=== PATIENT | female | born 1980 | race Caucasian/White ===

== ENCOUNTER → 2018-01-13 15:33 | Outpatient (CLI) | payer MEDICAID, SELFPAY ==
[2018-01-13 16:09] LABS: Basophils # 0.1 K/mm3 (0-0.2); Basophils % 1.4 % (0.1-2.0); Eosinophils # 0.2 K/mm3 (0.0-0.4); Eosinophils % 2.7 % (0.1-12.0); Hematocrit 40.5 % (37.0-47.0); Hemoglobin 14.4 g/dL (12.2-16.2); Lymphocytes # 2.1 K/mm3 (0.7-4.5); Lymphocytes % 31.9 K/mm3 (10-50); Mean Corpuscular HGB Conc 35.5 g/dL (31.8-35.4); Mean Corpuscular Hemoglobin 29.9 pg (27.0-31.2); Mean Corpuscular Volume 84.2 fl (81-99); Mean Platelet Volume 6.5 fl (7.4-10.4); Monocytes # 0.4 K/mm3 (0.1-1.0); Monocytes % 5.8 % (1.7-9.3); Neutrophils # 3.8 K/mm3 (1.8-7.8); Neutrophils % 58.2 % (37.0-80.0); Platelet Count 297 K/mm3 (142-424); Red Blood Count 4.81 M/mm3 (4.20-5.40); Red Cell Distribution Width 13.5 % (11.5-17.5); White Blood Count 6.5 K/mm3 (4.8-10.8)
[2018-01-13 18:20] LABS: Alanine Aminotransferase 33 U/L (12-78); Albumin Level 3.8 gm/dL (3.4-5.0); Albumin/Globulin Ratio 1.1 (1.1-1.8); Alkaline Phosphatase 89 U/L (46-116); Anion Gap 11.4 mEq/L (5-15); Aspartate Amino Transferase 17 U/L (15-37); Bilirubin,Total 0.2 mg/dL (0.2-1.0); Blood Urea Nitrogen 16 mg/dL (7-18); Calcium 9.4 mg/dL (8.5-10.1); Carbon Dioxide 29 mmol/L (21.0-32.0); Chloride 105 mmol/L (98-107); Chol/HDL Ratio 3.8 (1-3.5); Cholesterol 211 mg/dL (140-200); Creatinine,Serum 0.98 mg/dL (0.55-1.02); Estimated Glomerular Filt Rate 64 ml/min (>60); GFR (African American) 77 ML/MIN (>60); Globulin 3.4 gm/dl (1.3-3.2); Glucose 109 mg/dL (74-106); HDL Cholesterol 56 mg/dL (29-89); LDL Cholesterol 130 mg/dL (0-130); Potassium 4.4 mmoL/L (3.5-5.1); Sodium 141 mmol/L (136-145); T4 (Thyroxine) 14.8 ug/dl (4.7-13.3); Thyroid Stimulating Hormone 0.07 uIU/ml (0.358-3.740); Total Protein,Serum 7.2 gm/dL (6.4-8.2); Triglycerides 127 mg/dL (30-200); VLDL Cholesterol 25 mg/dL (0-40)
== END ==
PROVIDERS: PCP Emergency Medicine; Visit Provider Nurse Practitioner Family
DX: E03.9 Hypothyroidism, unspecified (principal)
CPT/HCPCS: 80053; 80061; 84436; 84443; 85025

== ENCOUNTER → 2018-09-21 18:08 | Outpatient (CLI) | payer MEDICAID, SELFPAY ==
--- NOTE | 2018-09-21 18:29 | XR_ITS ---
XR knee LT 4V HISTORY: ITS.REASON: knee pain ORDERING PHYSICIAN: Mackenzie Lacey APRN PATIENT AGE: 38 years COMPARISON: None FINDINGS: Mild osteoarthritic changes are present at the medial compartment and patellofemoral joint. No fracture or dislocation. No lytic or blastic change. IMPRESSION: Mild osteoarthritis
== END ==
PROVIDERS: PCP Nurse Practitioner Family; Visit Provider Nurse Practitioner Family
DX: M25.562 Pain in left knee (principal)
CPT/HCPCS: 73564

== ENCOUNTER → 2018-10-06 15:00 | Outpatient (CLI) | payer MEDICAID, SELFPAY | PROVIDERS: PCP Emergency Medicine; Visit Provider Orthopaedic Surgery | DX: M25.562 Pain in left knee (principal) ==

== ENCOUNTER 2020-04-16 22:53 | Emergency (ER) | payer MEDICAID, SELFPAY ==
[2020-04-16 22:55] VITALS: BP 165/78; PULSE 81; RESP 22; TEMP 36.8; O2SAT 95; BMI 31.1
--- NOTE | 2020-04-16 23:04 | XR_ITS ---
PROCEDURE: XR CHEST 2V CLINICAL HISTORY: SOA Shortness of air, smoker COMPARISON: CR CXR CHEST(2 VIEWS-NOT PORTABLE) from 09/06/2016 FINDINGS: The cardiomediastinal silhouette and pulmonary vascularity are within normal limits. There are atelectatic changes in both lung bases. No acute bony abnormalities. IMPRESSION: Bibasilar atelectasis Dictated by: Jack Spivey MD 04/17/2020 05:12 Jack Spivey MD in [place] 04/17/2020 05:12
[2020-04-16 23:30] LABS: Basophils # 0.1 K/mm3 (0-0.2); Basophils % 0.6 % (0.1-2.0); Eosinophils # 0.3 K/mm3 (0.0-0.4); Eosinophils % 2.3 % (0.1-12.0); Hematocrit 42.2 % (37.0-47.0); Hemoglobin 14.2 g/dL (12.2-16.2); Lymphocytes # 3.5 K/mm3 (0.7-4.5); Lymphocytes % 28.4 % (10-50); Mean Corpuscular HGB Conc 33.6 g/dL (31.8-35.4); Mean Corpuscular Hemoglobin 29.3 pg (27.0-31.2); Mean Platelet Volume 7.2 fl (7.4-10.4); Monocytes # 0.8 K/mm3 (0.1-1.0); Monocytes % 6.8 % (1.7-9.3); Neutrophils # 7.6 K/mm3 (1.8-7.8); Platelet Count 265 K/mm3 (142-424); Red Blood Count 4.85 M/mm3 (4.20-5.40); Red Cell Distribution Width 14.6 % (11.5-17.5); White Blood Count 12.3 K/mm3 (4.8-10.8)
[2020-04-16 23:37] LABS: Alanine Aminotransferase 24 U/L (12-78); Albumin Level 4.3 g/dl (3.5-5.0); Albumin/Globulin Ratio 1.4 (1.1-1.8); Alkaline Phosphatase 70 U/L (38-126); Anion Gap 8.5 mEq/L (5-15); Aspartate Amino Transferase 28 U/L (14-36); Bilirubin,Total 0.4 mg/dl (0.2-1.3); Blood Urea Nitrogen 17 mg/dl (7-17); Calcium 9.2 mg/dl (8.4-10.2); Carbon Dioxide 28 mmol/L (22.0-30.0); Chloride 99 mmol/L (98-107); Creatinine Clearance Estimated 106 mL/min (50-200); Estimated Glomerular Filt Rate 70 ml/min (>60); GFR (African American) 84 ML/MIN (>60); Glucose 105 mg/dl (74-100); Potassium 3.5 mmoL/L (3.5-5.1); Sodium 132 mmol/L (136-145); Total Protein,Serum 7.3 g/dl (6.3-8.2)
[2020-04-16 23:39] LABS: Microscopic, Urine URINE MICROSCOPIC (MICROSCOPIC)
[2020-04-16 23:42] LABS: C-Reactive Protein 5.7 mg/L (0-4)
[2020-04-16 23:43] LABS: Appearance,Urine CLEAR (Clear); Bilirubin,Urine Negative (Negative); Blood, Urine Negative (Negative); Color,Urine YELLOW (Yellow); Glucose,Urine (UA) Negative (Negative); Ketones,Urine Negative (Negative); Leukocyte Esterase,Urine Negative (Negative); Nitrate,Urine Negative (Negative); Protein,Urine Negative (Negative); Specific Gravity, Urine <= 1.005 (1.005-1.030); Urobilinogen,Urine 0.2 EU/dl (0.2)
--- NOTE | 2020-04-16 23:47 | HMH.EDSOB ---
ED Disposition Clinical Impression: Community acquired pneumonia Qualifiers: Laterality: right Lung location: middle lobe of lung Qualified Code(s): J18.9 - Pneumonia, unspecified organism Disposition: Home, Self-Care Condition on Discharge: Good Instructions: DI for Shortness of Breath Additional Instructions: fluids and see pcp for follow up Prescriptions: predniSONE [Prednisone 20mg Tab] 20 mg PO BID #10 tab Transmission Status: Pending to [facility] Benzonatate [Tessalon Perle 100mg Cap] 100 mg PO TID #30 cap Transmission Status: Pending to [facility] Azithromycin [Zithromax 250mg tab] 250 mg PO DIRECTED #6 tab Transmission Status: Pending to [facility] Referrals: Qi Villa [Primary Care Provider] - - Critical Care Critical Care Time: No Attestation: On 04/16/20, the high probability of a clinically significant, sudden or life threatening deterioration of the following system(s) required my full and direct attention, intervention and personal management. The time I documented below is in addition to time spent performing reported procedures but includes the following listed in this critical care notation. Medical Decision Making - Medical Records Medical records reviewed: Yes: I reviewed the patient's medical records. - [place] Inquiry Pt receiving controlled substance: No Vital Signs: 04/16/20 22:55 Temperature 98.2 F Temperature Source Oral Pulse Rate [Right] 81 Respiratory Rate 22 Blood Pressure [Right Arm] 165/78 H Blood Pressure Mean [Right Arm] 107 Blood Pressure Source [Right Arm] Automatic Cuff Blood Pressure Position [Right Arm] Supine 02 Sat by Pulse Oximetry 95 Oxygen Delivery Method Room Air - Lab Data Lab results reviewed: Yes: I reviewed the patient's lab results. Lab Results 04/16/20 23:20: WBC 12.3 H, RBC 4.85, Hgb 14.2, Hct 42.2, MCV 87.0, MCH 29.3, MCHC 33.6, RDW 14.6, Plt Count 265, MPV 7.2 L, Neut % (Auto) 62.0, Lymph % (Auto) 28.4, [place] % (Auto) 6.8, Eos % (Auto) 2.3, Baso % (Auto) 0.6, Neut # (Auto) 7.6, Lymph # (Auto) 3.5, [place] # (Auto) 0.8, Eos # (Auto) 0.3, Baso # (Auto) 0.1 04/16/20 23:20: Sodium 132 L, Potassium 3.5, Chloride 99, Carbon Dioxide 28, Anion Gap 8.5, BUN 17, Creatinine 0.90, Estimated Creat Clear 106, Estimated GFR 70, Est GFR ( Amer) 84, Glucose 105 H, Calcium 9.2, Total Bilirubin 0.4, AST 28, ALT 24, Alkaline Phosphatase 70, C-Reactive Protein 5.7 H, Total Protein 7.3, Albumin 4.3, Globulin 3.0, Albumin/Globulin Ratio 1.4, Procalcitonin 0.038 04/16/20 23:30: Urine Color Yellow, Urine Appearance Clear, Urine pH 6.0, Ur Specific [place] <= 1.005, Urine Protein Negative, Urine Glucose (UA) Negative, Urine Ketones Negative, Urine Blood Negative, Urine Nitrate Negative, Urine Bilirubin Negative, Urine Urobilinogen 0.2, Ur Leukocyte Esterase Negative, Urine WBC 3-5, Ur Squamous Epith Cells 20-50, Urine Bacteria 1+ Result diagrams: 04/16/20 23:20 04/16/20 23:20 Orders (Tests/Meds): ED MEDICATIONS Generic Name Dose Route Start Last Admin Trade Name Freq PRN Reason Stop Dose Admin Sodium Chloride 1,000 mls @ 999 mls/hr 04/16/20 23:30 04/16/20 23:27 Sod Chlor 0.9% 1000ml Bag IV 04/17/20 00:30 999 mls/hr .Q1H1M JERMAIN Administration Sodium Chloride 3 ml 04/16/20 23:04 Sodium Chloride 3% 15ml Neb IH 05/16/20 23:03 ONCE PRN INDUCE SPUTUM COLLECTION Discontinued Medications Generic Name Dose Route Start Last Admin Trade Name Freq PRN Reason Stop Dose Admin Albuterol/Ipratropium 3 ml 04/16/20 23:05 04/16/20 23:26 Albuterol/Ipratropium 3 Ml Neb IH 04/16/20 23:06 3 ml ONCE ONE Administration Methylprednisolone Sodium Succinate 125 mg 04/16/20 23:04 04/16/20 23:25 Methylprednisolone Sod Succ 125mg Vial IV 04/16/20 23:05 125 mg ONCE ONE Administration ORDERS Category Date Time Status XR chest 2V Stat Exams 04/16/20 23:04 Taken Complete Blood Count Auto Di
[2020-04-16 23:54] LABS: Barbiturates Screen,Urine Negative ng/ml (<200)
[2020-04-16 23:55] LABS: Benzodiazepines Screen,Urine Negative ng/ml (<200)
[2020-04-16 23:55] LABS: Procalcitonin 0.038 ng/mL (0.0-2.0)
[2020-04-16 23:56] LABS: Cannabinoid Screen,Urine Negative ng/ml (<50)
[2020-04-16 23:57] LABS: Cocaine Screen,Urine Negative ng/ml (<300)
[2020-04-16 23:58] LABS: Bacteria,Urine 1+ /lpf; Methadone Screen,Urine Negative ng/ml (<300); Opiate Screen,Urine Negative ng/ml (<300); Squamous Epithelial Cell,Urine 20-50 #/hpf (0-5)
[2020-04-16 23:59] LABS: Phencyclidine Screen,Urine Negative ng/ml (<25)
[2020-04-17 00:01] LABS: Amphetamine/Metha Screen,Urine Negative ng/ml (<1000)
[2020-04-17 00:43] LABS: Coronavirus 19 IgG Antibody Negative (Negative); Coronavirus 19 IgM Antibody Negative (Negative)
[2020-04-17 00:49] VITALS: BP 145/71; PULSE 75; RESP 18; TEMP 36.7; O2SAT 96
[2020-04-17 00:59] LABS: Erythrocyte Sedimentation Rate 15 mm/hr (0-20)
== END 2020-04-17 00:51 | disposition home or self-care (01) ==
PROVIDERS: Emergency Provider Emergency Medicine; PCP Family Medicine
DX: J18.9 Pneumonia, unspecified organism (principal); Z01.84 Encounter for antibody response examination; F17.210 Nicotine dependence, cigarettes, uncomplicated
CPT/HCPCS: 71046; 80053; 80305; 81001; 84145; 85025; 85651; 86140; 86328; 87070; 87077; 87186; 87205; 96365; 96375; 99283

== ENCOUNTER 2020-05-14 14:53 | Emergency (ER) | payer MEDICAID, SELFPAY ==
[2020-05-14 14:54] VITALS: BP 138/80; PULSE 107; RESP 20; TEMP 37.3; O2SAT 98; BMI 31.1
--- NOTE | 2020-05-14 14:59 | XR_ITS ---
PROCEDURE: XR CHEST PORTABLE CLINICAL HISTORY: soashortness of air, pneumonia follow-up COMPARISON: CR CXR CHEST(2 VIEWS-NOT PORTABLE) from 09/06/2016 CR XR CHEST 2V from 04/16/2020 FINDINGS: The cardiomediastinal silhouette and pulmonary vascularity are within normal limits. There remains patchy density in the right lung base consistent with residual atelectasis and/or infiltrate. The remaining lungs are clear. No acute bony abnormalities. IMPRESSION: Persistent atelectasis and/or infiltrate in lung base Dictated by: Jack Spivey MD 05/14/2020 15:33 Jack Spivey MD in [place] 05/14/2020 15:33
--- NOTE | 2020-05-14 15:17 | HMH.EDGENADL ---
ED Disposition Clinical Impression: Community acquired pneumonia Disposition: Home, Self-Care Condition on Discharge: Good Additional Instructions: Return for worsening shortness of breath fever or any other concerns within the next 8 hours otherwise follow-up with your primary care physician within the next few days Prescriptions: Cefdinir [Omnicef 300mg Capsule] 300 mg PO BID 10 Days #20 cap Transmission Status: Pending to [facility] Referrals: Qi Villa [Primary Care Provider] - - Critical Care Critical Care Time: No Attestation: On , the high probability of a clinically significant, sudden or life threatening deterioration of the following system(s) required my full and direct attention, intervention and personal management. The time I documented below is in addition to time spent performing reported procedures but includes the following listed in this critical care notation. Medical Decision Making - Medical Records Medical records reviewed: Yes: I reviewed the patient's medical records. - [place] Inquiry Pt receiving controlled substance: No Vital Signs: 05/14/20 14:54 Temperature 99.2 F Temperature Source Oral Pulse Rate [Radial] 107 H Respiratory Rate 20 Blood Pressure [Right Arm] 138/80 Blood Pressure Mean [Right Arm] 99 Blood Pressure Position [Right Arm] Sitting 02 Sat by Pulse Oximetry 98 Oxygen Delivery Method Room Air - Lab Data Lab Results 05/14/20 15:45: WBC 8.4, RBC 5.14, Hgb 14.5, Hct 45.0, MCV 87.6, MCH 28.3, MCHC 32.3, RDW 14.1, Plt Count 306, MPV 6.9 L, Neut % (Auto) 67.3, Lymph % (Auto) 21.2, [place] % (Auto) 7.3, Eos % (Auto) 2.8, Baso % (Auto) 1.3, Neut # (Auto) 5.7, Lymph # (Auto) 1.8, [place] # (Auto) 0.6, Eos # (Auto) 0.2, Baso # (Auto) 0.1 05/14/20 15:45: Sodium 135 L, Potassium 4.2, Chloride 97 L, Carbon Dioxide 31 H, Anion Gap 11.2, BUN 16, Creatinine 1.00, Estimated Creat Clear 95, Estimated GFR 62, Est GFR ( Amer) 75, Glucose 120 H, Calcium 10.1, Total Bilirubin 0.4, AST 31, ALT 28, Alkaline Phosphatase 83, Total Protein 8.1, Albumin 4.8, Globulin 3.3 H, Albumin/Globulin Ratio 1.5 05/14/20 15:45: Serum HCG, Qual Negative Result diagrams: 05/14/20 15:45 05/14/20 15:45 Medical Decision Narrative: 39-year-old female presents with symptoms of atypical pneumonia. Chest x-ray and laboratory evaluation have been obtained. She is in no acute distress and nontoxic-appearing able to speak in full sentences vital signs otherwise are stable. Chest x-ray shows persistent pneumonia labs otherwise nonactionable, plan to discharge with antibiotics and given strict return precautions General Adult HPI - General Chief complaint: Shortness of Breath/Dyspnea Stated complaint: congested,cough Time Seen by Provider: 05/14/20 15:10 Mode of Arrival: Ambulatory Limitations: No Limitations Description of Symptoms (Recalled from ER Triage Doc. by RN): TO ED PER [facility] WITH C/O COUGH, SOB PT STATES DX WITH PNEUMONIA 04/15 FINISHED COURSE OF ANTIBIOTICS STATES SHE WAS IMPROVING WITH MEDS, BUT BECAME PROGRESSIVELY WORSE AFTER. SEEN BY PCP 04/28 WITH NO NEW ORDERS. - History of Present Illness HPI narrative: 39-year-old female presents with cough and shortness of breath. She says the symptoms are same as they were in April, and that the antibiotics did help her get better. She says she has no fever no chills no loss of taste and smell. No nausea vomiting fever or chest pain. Onset (ago): day(s) (1) Severity: mild Consistency: intermittent - Related Data Home Medications Medication Instructions Recorded Confirmed Buprenorphine HCl/Naloxone HCl 1 each SL DAILY 04/16/20 04/16/20 [Suboxone 8 mg-2 mg Sl Film] Levothyroxine Sodium [Synthroid 175 mcg PO DAILY 04/16/20 04/16/20 175mcg (0.175mg) tablet] Montelukast Sodium [Singulair 10mg 10 mg PO PM 04/16/20 04/16/20 tablet] buPROPion HCL [Wellbutrin SR] 150 mg PO BID 04/16/20 04/16/20 hydroCHLOROth
[2020-05-14 16:05] LABS: Basophils # 0.1 K/mm3 (0-0.2); Basophils % 1.3 % (0.1-2.0); Eosinophils # 0.2 K/mm3 (0.0-0.4); Eosinophils % 2.8 % (0.1-12.0); Hemoglobin 14.5 g/dL (12.2-16.2); Lymphocytes # 1.8 K/mm3 (0.7-4.5); Lymphocytes % 21.2 % (10-50); Mean Corpuscular HGB Conc 32.3 g/dL (31.8-35.4); Mean Corpuscular Hemoglobin 28.3 pg (27.0-31.2); Mean Corpuscular Volume 87.6 fl (81-99); Mean Platelet Volume 6.9 fl (7.4-10.4); Monocytes # 0.6 K/mm3 (0.1-1.0); Monocytes % 7.3 % (1.7-9.3); Neutrophils # 5.7 K/mm3 (1.8-7.8); Neutrophils % 67.3 % (37.0-80.0); Platelet Count 306 K/mm3 (142-424); Red Blood Count 5.14 M/mm3 (4.20-5.40); Red Cell Distribution Width 14.1 % (11.5-17.5); White Blood Count 8.4 K/mm3 (4.8-10.8)
[2020-05-14 16:08] LABS: Chloride 97 mmol/L (98-107); Potassium 4.2 mmoL/L (3.5-5.1); Sodium 135 mmol/L (136-145)
[2020-05-14 16:11] LABS: Alanine Aminotransferase 28 U/L (12-78); Albumin Level 4.8 g/dl (3.5-5.0); Albumin/Globulin Ratio 1.5 (1.1-1.8); Alkaline Phosphatase 83 U/L (38-126); Anion Gap 11.2 mEq/L (5-15); Aspartate Amino Transferase 31 U/L (14-36); Bilirubin,Total 0.4 mg/dl (0.2-1.3); Blood Urea Nitrogen 16 mg/dl (7-17); Carbon Dioxide 31 mmol/L (22.0-30.0); Creatinine Clearance Estimated 95 mL/min (50-200); Estimated Glomerular Filt Rate 62 ml/min (>60); GFR (African American) 75 ML/MIN (>60); Globulin 3.3 g/dL (1.3-3.2); Total Protein,Serum 8.1 g/dl (6.3-8.2)
[2020-05-14 16:12] LABS: Calcium 10.1 mg/dl (8.4-10.2); Glucose 120 mg/dl (74-100); HCG Qualitative, Serum Negative (Negative)
[2020-05-14 16:40] VITALS: BP 115/62; PULSE 88; RESP 18; TEMP 37.2; O2SAT 98
== END 2020-05-14 16:41 | disposition home or self-care (01) ==
PROVIDERS: Emergency Provider Emergency Medicine; PCP Family Medicine
DX: J18.9 Pneumonia, unspecified organism (principal); F17.210 Nicotine dependence, cigarettes, uncomplicated
CPT/HCPCS: 71045; 80053; 84703; 85025; 99282

== ENCOUNTER 2020-05-22 12:33 | Emergency (ER) | payer MEDICAID, SELFPAY ==
[2020-05-22 12:35] VITALS: BP 131/73; PULSE 76; RESP 22; TEMP 36.6; O2SAT 96; BMI 31.1
[2020-05-22 12:53] VITALS: BMI 31.1
--- NOTE | 2020-05-22 12:54 | XR_ITS ---
PROCEDURE: XR CHEST 2V CLINICAL HISTORY: COUGH COMPARISON: CR CXR CHEST(2 VIEWS-NOT PORTABLE) from 09/06/2016 CR XR CHEST 2V from 04/16/2020 CR XR CHEST PORTABLE from 05/14/2020 FINDINGS: The cardiomediastinal silhouette and pulmonary vascularity are within normal limits. The lungs are clear without infiltrates, suspicious nodules, or pleural effusions. No acute bony abnormalities. IMPRESSION: No acute findings. Dictated by: Jack Spivey MD 05/22/2020 20:33 Jack Spivey MD in [place] 05/22/2020 20:33
--- NOTE | 2020-05-22 13:02 | HMH.EDUTC ---
[facility] [place] <Tahir Morin - Last Filed: 05/22/20 13:02> Condition on Discharge: Fair Time of Disposition: 15:20 <Joe Hobson - Last Filed: 05/22/20 15:20> Clinical Impression: Anxiety about health Disposition: Home, Self-Care Additional Instructions: We have reviewed your recent labs and chest x-ray and show and they show no acute findings we have done an EKG today and it shows normal sinus rhythm rhythm vital signs today are also within normal limits continue take your current antibiotics and follow-up as needed Referrals: Qi Villa [Primary Care Provider] - Medical Decision Making - Medical Records Medical records reviewed: No: I reviewed the patient's medical records. - Dillon Inquiry Pt receiving controlled substance: No <Tahir Morin - Last Filed: 05/22/20 13:02> - Medical Records MR Comment: 39-year-old female here with complaint that she was not feeling well she recently had pneumonia and was treated with Keflex states she got up in the middle of the night yesterday and had checked her blood pressure and it was seen to be elevated heart rate was also elevated she called her sister who is apparently an RN and this got her concerned and came to be evaluated she first came to the urgent care center and they sent her here for further evaluation. I reviewed patient's findings as she has had a CBC and CMP on 05/14/2020 and these are found to be within normal limits; she had a chest x-ray also at the same time and it says atelectasis or infiltrates in lung bases was treated with an antibiotic; today at this time her vital signs are stable blood pressure is 111/63; pulse 72; respirations 18; oxygen saturation 96% on room air; temperature is 96.8; EKG shows normal sinus rhythm with a rate of 67; given reassurance to the patient I do not think we need to do more work-up; Advised continue with her current antibiotic Keflex and follow-up as needed and advised her also that an occasional rise in blood pressure without symptoms such as chest pain shortness of breath or focal neurological signs of no concern - [place] Inquiry Pt receiving controlled substance: No - Lab Data Lab results reviewed: Yes: I reviewed the patient's lab results. <Joe Hobson - Last Filed: 05/22/20 15:20> Vital Signs: 01/21/21 12:35 05/22/20 13:04 05/22/20 13:51 Temperature 97.8 F 98.8 F Temperature Source Oral Oral Pulse Rate [Right Brachial] 76 88 72 Respiratory Rate 22 19 Blood Pressure [Right Arm] 131/73 127/87 111/63 Blood Pressure Mean [Right Arm] 92 100 79 Blood Pressure Source [Right Arm] Automatic Cuff Automatic Cuff Automatic Cuff Blood Pressure Position [Right Arm] Sitting Sitting Sitting 02 Sat by Pulse Oximetry 96 97 96 Oxygen Delivery Method Room Air Room Air Room Air Orders (Tests/Meds): ORDERS Category Date Time Status Chest XR 2 view (NOT portable) [XR chest 2V] Stat Exams 05/22/20 12:54 Taken [facility] [place] - History of Present Illness Provider Complaint: She is here today with complaints of having pneumonia and not getting better. She was first diagnosed with pneumonia back in April. She was treated out patient and she seemed to get better. But her symptoms returned around 8 days ago. She then came in and was treated in the er here for pneumonia. She was sent home on antibiotics. She states that she felt better until yesterday. Yesteday she started feeling bad, having a worsening cough and having an elevated heart rate. Her sister is an RN. They checked her HR last night and it as read as 210 bpm. She waited until today to come back in. At this time she c/o feeling like her pneumonia is back. She c/o shortness of breath, cough, and chilling. She denies any covid exposure. She was negative at her last visit and she states that she has stayed home and not been around anyone since her last covid check. <Tahir Morin - Last Filed: 05/22/20 13:02> - General Mode of Arrival: Ambulatory Source of
[2020-05-22 13:04] VITALS: BP 127/87; PULSE 88; RESP 19; TEMP 37.1; O2SAT 97; BMI 32.9
--- NOTE | 2020-05-22 13:07 | PC.NURSE ---
PATIENT SENT TO ER PER OLVIN TUTTLE APRN FOR FURTHER EVALUATION. REPORT GIVEN TO Ya BOO RN
[2020-05-22 13:51] VITALS: BP 111/63; PULSE 72; O2SAT 96
--- NOTE | 2020-05-22 15:11 | ECG_ITS ---
APPROVED REPORT Exam: Resting ECG HR:67 bpm ECG Measurements Heart Rate 67 AXES IA 154 P 33 QRSd 74 QRS 64 QT 414 T 29 QTc 437 Conclusion Normal sinus rhythm Normal ECG Electronically signed by : Obdulio Spivey, 05/23/2020 18:07:28
[2020-05-22 15:33] VITALS: BP 109/71; PULSE 75; RESP 20; TEMP 36.6; O2SAT 96
== END 2020-05-22 15:34 | disposition home or self-care (01) ==
LOC: UTC 12:38 → ER 13:07
PROVIDERS: Emergency Provider Nurse Practitioner Family; PCP Family Medicine
DX: F41.8 Other specified anxiety disorders (principal); E03.9 Hypothyroidism, unspecified; R05 Cough; R06.02 Shortness of breath; F17.210 Nicotine dependence, cigarettes, uncomplicated; Z79.899 Other long term (current) drug therapy
CPT/HCPCS: 71046; 93005; 99282

== ENCOUNTER 2020-09-06 10:30 | Emergency (ER) | payer MEDICAID, SELFPAY ==
[2020-09-06 11:40] VITALS: BP 165/126; PULSE 85; RESP 19; TEMP 36.7; O2SAT 97; BMI 32.8
[2020-09-06 11:45] VITALS: BP 165/126; PULSE 85; RESP 19; TEMP 36.7; O2SAT 97
--- NOTE | 2020-09-06 11:45 | HMH.EDUTC ---
[facility] [place] Disposition Clinical Impression: Bronchitis Disposition: Home, Self-Care Condition on Discharge: Good Instructions: DI for Acute Bronchitis Additional Instructions: Drink plenty of fluids. Take tylenol for pain or fever. Return if you begin to have difficulty breathing. Follow up with your regular doctor. GO TO THE ER FOR ANY WORSENING SYMPTOMS Prescriptions: Benzonatate [Tessalon Perle 100mg Cap] 100 mg PO TIDP PRN #30 cap PRN Reason: Cough Transmission Status: Received by [facility] Azithromycin [Z-Kuldeep 250mg Tab*] 250 mg PO UD DOSE PK #6 tab Transmission Status: Received by [facility] Referrals: Qi Villa [Primary Care Provider] - Time of Disposition: 11:50 Medical Decision Making - Medical Records Medical records reviewed: No: I reviewed the patient's medical records. - Dillon Inquiry Pt receiving controlled substance: No Vital Signs: 09/06/20 11:40 09/06/20 11:45 Temperature 98.1 F 98.1 F Temperature Source Oral Pulse Rate 85 Pulse Rate [Left] 85 Respiratory Rate 19 19 Blood Pressure 165/126 H Blood Pressure [Right Arm] 165/126 H Blood Pressure Mean [Right Arm] 139 Blood Pressure Source [Right Arm] Automatic Cuff Blood Pressure Position [Right Arm] Sitting 02 Sat by Pulse Oximetry 97 Oxygen Delivery Method Room Air [facility] [place] HPI - General Stated complaint: cough congestion Time Seen by Provider: 09/06/20 11:45 Mode of Arrival: Ambulatory Source of Information: Patient Limitations: No Limitations Description of Symptoms (Recalled from Triage Doc. by RN): Cough, congestion, x 3 days since second moderna shot HEENT Symptoms (Recalled from RN notes): No Resp Symptoms (Recalled from RN notes): Yes Skin Symptoms (Recalled from RN notes): No MS Symptoms (Recalled from RN notes): No Functional Status (Recalled from RN notes): wnl - History of Present Illness Provider Complaint: She states that she has had sinus and chest congestion for the past 3 days. She gets bronchitis this time of year usually. - Related Data Home Medications Medication Instructions Recorded Confirmed Buprenorphine HCl/Naloxone HCl 1 each SL DAILY 04/16/20 04/16/20 [Suboxone 8 mg-2 mg Sl Film] Levothyroxine Sodium [Synthroid 175 mcg PO DAILY 04/16/20 04/16/20 175mcg (0.175mg) tablet] Montelukast Sodium [Singulair 10mg 10 mg PO PM 04/16/20 04/16/20 tablet] buPROPion HCL [Wellbutrin SR] 150 mg PO BID 04/16/20 04/16/20 hydroCHLOROthiazide 50 mg PO DAILY 04/16/20 04/16/20 [Hydrochlorothiazide 50mg Tab] Previous Rx's Medication Instructions Recorded albuterol sulfate 90 mcg/actuation 2 puff INHALATION Q6H PRN 30 Days 08/30/18 aerosol inhaler #6.7 g Azithromycin [Zithromax 250mg 250 mg PO DIRECTED #6 tab 04/17/20 tab] Benzonatate [Tessalon Perle 100mg 100 mg PO TID #30 cap 04/17/20 Cap] predniSONE [Prednisone 20mg 20 mg PO BID #10 tab 04/17/20 Tab] ciprofloxacin HCl 500 mg tablet 500 mg PO BID 5 Days #10 tab 04/22/20 Cefdinir [Omnicef 300mg Capsule] 300 mg PO BID 10 Days #20 cap 05/14/20 Azithromycin [Z-Kuldeep 250mg Tab*] 250 mg PO UD DOSE PK #6 tab 09/06/20 Benzonatate [Tessalon Perle 100mg 100 mg PO TIDP PRN #30 cap 09/06/20 Cap] Allergies Allergy/AdvReac Type Severity Reaction Status Date / Time No Known Allergies Allergy Verified 09/06/20 11:03 - Worker's Comp Is this a Worker's Comp case?: No [facility] History - Hepatitis A Screen Drug use history?: No High risk sexual behaviors?: No History of sexually transmitted infection?: No Currently employed?: No Childcare worker?: No Do you have indoor plumbing?: Yes Do you have electricity?: Yes Attestation statement:: This patient has been screened for Hepatitis A risk factors. I have reviewed the patient's past medical history: Yes Medical History: Denies:: Diabetes Mellitus Type 1, Diabetes Mellitus Type 2 Laterality Cases: Left: Arthroscopy Knee Other
== END 2020-09-06 11:56 | disposition home or self-care (01) ==
PROVIDERS: Emergency Provider Nurse Practitioner Family; PCP Family Medicine
DX: J20.9 Acute bronchitis, unspecified (principal); F17.210 Nicotine dependence, cigarettes, uncomplicated; Z79.899 Other long term (current) drug therapy
CPT/HCPCS: 99202; G0463

== ENCOUNTER → 2021-03-09 21:58 | Outpatient (CLI) | payer MEDICAID, SELFPAY | PROVIDERS: Visit Provider Nurse Practitioner Family | DX: Z20.822 Contact with and (suspected) exposure to COVID-19 (principal); J02.9 Acute pharyngitis, unspecified | CPT/HCPCS: C9803; U0003; U0005 ==

== ENCOUNTER 2021-05-28 12:48 | Emergency (ER) | payer MEDICAID, SELFPAY ==
[2021-05-28 12:50] VITALS: BP 122/76; PULSE 76; RESP 18; TEMP 36.8; O2SAT 98; BMI 33.5
--- NOTE | 2021-05-28 13:00 | XR_ITS ---
FINAL REPORT CLINICAL HISTORY: chest pain FINDINGS: SINGLE VIEW CHEST The heart is normal in size. The mediastinum is unremarkable. There is a calcified granuloma in the periphery of the right lung. The lungs are otherwise clear. There is no pneumothorax. IMPRESSION: No acute cardiopulmonary process. Reviewed, Interpreted and Dictated by Bismark Pineda MD Transcribed by Sarita Ahmadi Authenticated by Bismark Pineda MD on 05/28/2021 02:22:19 PM [facility]
--- NOTE | 2021-05-28 13:08 | ECG_ITS ---
APPROVED REPORT Exam: Resting ECG HR:73 bpm ECG Measurements Heart Rate 73 AXES [place] 155 P 18 QRSd 79 QRS 42 QT 380 T 12 QTc 406 Conclusion SINUS RHYTHM NORMAL ECG UNCONFIRMED REPORT Electronically signed by : Obdulio Spivey MD 06/01/2021 17:32:30
--- NOTE | 2021-05-28 13:14 | HMH.EDGENADL ---
ED Disposition Clinical Impression: Chest pain Qualifiers: Chest pain type: unspecified Qualified Code(s): R07.9 - Chest pain, unspecified Disposition: Home, Self-Care Condition on Discharge: Fair Instructions: DI for Chest Pain Additional Instructions: You have been evaluated for chest pain. No clear cause identified. Please take anti-inflammatories like Tylenol or ibuprofen if you have mild chest pain. Continue taking Eliquis as prescribed. Return to the emergency department at once for any new or worsening symptoms, sharp pain, difficulty breathing, other concerns. Referrals: Qi Villa [Primary Care Provider] - Time of Disposition: 14:51 - Critical Care Critical Care Time: No Attestation: On 05/28/21, the high probability of a clinically significant, sudden or life threatening deterioration of the following system(s) required my full and direct attention, intervention and personal management. The time I documented below is in addition to time spent performing reported procedures but includes the following listed in this critical care notation. Medical Decision Making - Medical Records Medical records reviewed: Yes: I reviewed the patient's medical records. - Dillon Inquiry Pt receiving controlled substance: No Vital Signs: 05/28/21 12:50 Temperature 98.2 F Temperature Source Oral Pulse Rate [Left Radial] 76 Respiratory Rate 18 Blood Pressure [Right Arm] 122/76 Blood Pressure Mean [Right Arm] 91 Blood Pressure Source [Right Arm] Automatic Cuff Blood Pressure Position [Right Arm] Sitting 02 Sat by Pulse Oximetry 98 Oxygen Delivery Method Room Air - Lab Data Lab Results 05/28/21 13:27: WBC 7.1, RBC 4.52, Hgb 12.9, Hct 39.3, MCV 87.0, MCH 28.6, MCHC 32.9, RDW 14.0, Plt Count 319, MPV 7.3 L, Neut % (Auto) 62.2, Lymph % (Auto) 28.0, [place] % (Auto) 5.9, Eos % (Auto) 2.3, Baso % (Auto) 1.6, Neut # (Auto) 4.4, Lymph # (Auto) 2.0, [place] # (Auto) 0.4, Eos # (Auto) 0.2, Baso # (Auto) 0.1 05/28/21 13:27: D-Dimer 0.43 05/28/21 13:27: Sodium 136, Potassium 3.8, Chloride 98, Carbon Dioxide 28, Anion Gap 13.8, BUN 16, Creatinine 1.00, Estimated Creat Clear 101, Estimated GFR 61, Est GFR ( Amer) 74, Glucose 116 H, Calcium 9.4, Total Bilirubin 0.3, AST 32, ALT 26, Alkaline Phosphatase 63, Troponin I < 0.01, Total Protein 7.3, Albumin 4.5, Globulin 2.8, Albumin/Globulin Ratio 1.6 Result diagrams: 05/28/21 13:27 05/28/21 13:27 Orders (Tests/Meds): ORDERS Category Date Time Status Troponin I Q3H Lab 05/28/21 16:15 Ordered Troponin I Q3H Lab 05/28/21 19:15 Ordered EKG Request [ECG Request by /Ruma] Stat Y 05/28/21 13:01 Ordered - PABLO Score for Non-Stemi Age of Patient: 40-49 years old Heart Rate: 70-89 bpm Systolic Blood Pressure: 120-139 mmhg Serum Creatinine: 0.40-0.79 mg/dl CHF [place] Class: I-No CHF Other Risk Factors: None Non-Stemi Risk Score: 72 Medical Decision Narrative: In summary this is a 40-year-old female with history of thyroid cancer and recent DVT presenting to the emergency department with left-sided chest pain. Patient clinically stable on arrival. Vital signs within normal limits. No tachycardia. No respiratory distress or hypoxia. Concern for musculoskeletal pain, chest wall pain. Cannot exclude pulmonary embolism or ACS. Will obtain CBC, CMP, chest x-ray, EKG, troponin profile, D-dimer. EKG shows sinus rhythm. No evidence of ischemia or arrhythmia. Initial laboratory results reassuring. No leukocytosis. Initial troponin is undetectable. D-dimer within normal limits. Doubt new or acute pulmonary embolism. Patient is anticoagulated on Eliquis. No tachycardia or hypoxia. On reassessment, patient says that her chest pain is entirely resolved. She has no new or concerning features like fatigue or shortness of breath. She ambulated to the bathroom without difficulty. Counseled her on atypical nature of chest pain. Recommended close PCP follow-up. Given
[2021-05-28 13:30] VITALS: PULSE 75; O2SAT 95
--- NOTE | 2021-05-28 13:31 | PC.NURSE ---
Radiology at bedside
[2021-05-28 13:48] LABS: Alanine Aminotransferase 26 U/L (12-78); Albumin Level 4.5 g/dl (3.5-5.0); Albumin/Globulin Ratio 1.6 (1.1-1.8); Alkaline Phosphatase 63 U/L (38-126); Anion Gap 13.8 mEq/L (5-15); Aspartate Amino Transferase 32 U/L (14-36); Bilirubin,Total 0.3 mg/dl (0.2-1.3); Blood Urea Nitrogen 16 mg/dl (7-17); Calcium 9.4 mg/dl (8.4-10.2); Carbon Dioxide 28 mmol/L (22.0-30.0); Chloride 98 mmol/L (98-107); Creatinine Clearance Estimated 101 mL/min (50-200); Estimated Glomerular Filt Rate 61 ml/min (>60); GFR (African American) 74 ML/MIN (>60); Globulin 2.8 g/dL (1.3-3.2); Glucose 116 mg/dl (74-100); Potassium 3.8 mmoL/L (3.5-5.1); Sodium 136 mmol/L (136-145); Total Protein,Serum 7.3 g/dl (6.3-8.2)
[2021-05-28 13:53] LABS: D-Dimer 0.43 ug/mL (0.0-0.5)
[2021-05-28 13:57] LABS: Basophils # 0.1 K/mm3 (0-0.2); Basophils % 1.6 % (0.1-2.0); Eosinophils # 0.2 K/mm3 (0.0-0.4); Eosinophils % 2.3 % (0.1-12.0); Hematocrit 39.3 % (37.0-47.0); Hemoglobin 12.9 g/dL (12.2-16.2); Mean Corpuscular HGB Conc 32.9 g/dL (31.8-35.4); Mean Corpuscular Hemoglobin 28.6 pg (27.0-31.2); Mean Platelet Volume 7.3 fl (7.4-10.4); Monocytes # 0.4 K/mm3 (0.1-1.0); Monocytes % 5.9 % (1.7-9.3); Neutrophils # 4.4 K/mm3 (1.8-7.8); Neutrophils % 62.2 % (37.0-80.0); Platelet Count 319 K/mm3 (142-424); Red Blood Count 4.52 M/mm3 (4.20-5.40); White Blood Count 7.1 K/mm3 (4.8-10.8)
[2021-05-28 14:00] VITALS: PULSE 75; O2SAT 97
[2021-05-28 14:22] LABS: Troponin I < 0.01 ng/ml (0.00-0.034)
[2021-05-28 14:30] VITALS: PULSE 71; O2SAT 97
--- NOTE | 2021-05-28 15:13 | PC.NURSE ---
Patient has no needs at this time; 2nd troponin drawn and sent to lab
--- NOTE | 2021-05-28 15:42 | PC.NURSE ---
Called lab to check on 2nd troponin; they verified only 4 mins left.
[2021-05-28 15:47] LABS: Troponin I < 0.01 ng/ml (0.00-0.034)
[2021-05-28 15:54] VITALS: BP 100/46; PULSE 62; RESP 20; TEMP 36.8; O2SAT 99
== END 2021-05-28 15:55 | disposition home or self-care (01) ==
PROVIDERS: Emergency Provider Emergency Medicine; PCP Family Medicine
DX: R07.9 Chest pain, unspecified (principal); Z86.718 Personal history of other venous thrombosis and embolism; Z79.01 Long term (current) use of anticoagulants; Z85.850 Personal history of malignant neoplasm of thyroid; J45.909 Unspecified asthma, uncomplicated; E03.9 Hypothyroidism, unspecified; F33.1 Major depressive disorder, recurrent, moderate
CPT/HCPCS: 71045; 80053; 84484; 85025; 85378; 93005; 99283

== ENCOUNTER 2022-01-07 18:59 | Emergency (ER) | payer MEDICAID, SELFPAY ==
[2022-01-07 19:20] VITALS: BP 142/86; PULSE 91; RESP 21; TEMP 36.8; O2SAT 100; BMI 29.9
--- NOTE | 2022-01-07 19:48 | EXP.UTC ---
Discharge Plan Disposition Patient Disposition: Home, Self-Care Condition: Good Prescriptions Prescriptions: New amoxicillin 875 mg tablet 875 mg PO Q12H Qty: 20 0RF methylprednisolone [Medrol (Kuldeep)] 4 mg tablets,dose pack See Rx Instructions .Route .COMPLEX 6 Days Qty: 21 0RF Rx Instructions: taper pack; No Action albuterol sulfate 90 mcg/actuation HFA aerosol inhaler 2 puff INHALATION Q6H PRN (Reason: wheezing) 30 Days Qty: 6.7 0RF Rx Instructions: administer with spacer azithromycin 250 mg tablet 250 mg PO QDAY 5 Days Qty: 6 0RF Rx Instructions: ii tabs day one and i tab days 2-5 montelukast 10 MG tablet 10 mg PO PM buprenorphine-naloxone 1 EACH film 1 each SL DAILY levothyroxine 175 MCG tablet 175 mcg PO DAILY Rx Instructions: TAKE 1 TABLET BY MOUTH ONCE DAILY bupropion HCl 150 MG tablet sustained-release 12 hr 150 mg PO BID hydrochlorothiazide 50 MG tablet 50 mg PO DAILY Rx Instructions: TAKE ONE TABLET BY MOUTH EVERY DAY Referrals Follow up/Referrals: Qi Villa [Primary Care Provider] - See instructions Activity Restrictions/Add. Instructions Additional Instructions/Restrictions: Monitor Temp, Over the counter Motrin or Tylenol as directed/as needed Tylenol every 4 hours and Motrin every 6 hours (as long as your family doctor has told you that you can take it) for fever or pain. and straight to ER if unable to lower temp less than 101.0 after medication given *Warm salt water gargles may help to soothe the throat *Throat Lozenges? *Warm fluids like tea with honey may help to soothe the throat? *Sleep elevated *Humidifier/Vaporizer Take medications as prescribed Follow up IMMEDIATELY for new or worsening symptoms or no Noticeable improvement over the next 48-72 hours. 911 for difficulty breathing or swallowing * Clinical Impressions Clinical Impression: Otitis media Instructions Patient Instructions: Middle Ear Infection, Amoxicillin Discharge ED Provider: Marge Duran [facility] HPI General Stated complaint: ear ache and congestion Mode of Arrival: Ambulatory Source of Information: Patient Limitations: No Limitations Time Seen by Provider: 01/07/22 19:30 Description of Symptoms (Recalled from Triage Doc. by RN): PATIENT C/O EAR ACHE AND LOW-GRADE FEVER HEENT Symptoms (Recalled from RN notes): Yes Resp Symptoms (Recalled from RN notes): No Skin Symptoms (Recalled from RN notes): No MS Symptoms (Recalled from RN notes): No Functional Status (Recalled from RN notes): WNL History of Present Illness Provider Complaint: Patient states that she has been having pain in her ears and having low grade fever States that today her ears was hurting worse and feels like her throat is starting to hurt but she thinks it was from her ears Related Data Home Medications Medication Instructions Recorded Confirmed buprenorphine 8 mg-naloxone 2 mg 1 each SL DAILY opiod use 04/16/20 03/09/21 sublingual film bupropion HCl 150 mg tablet,12 hr 150 mg PO BID Depression 04/16/20 03/09/21 sustained-release hydrochlorothiazide 50 mg tablet 50 mg PO DAILY High blood pressure 04/16/20 03/09/21 levothyroxine 175 mcg tablet 175 mcg PO DAILY thyroid 04/16/20 03/09/21 montelukast 10 mg tablet 10 mg PO PM Asthma 04/16/20 03/09/21 Previous Rx's Medication Instructions Recorded albuterol sulfate 90 mcg/actuation 2 puff inhalation Q6H PRN wheezing 08/30/18 aerosol inhaler 30 days #6.7 grams azithromycin 250 mg tablet 250 mg PO QDAY resp infection 5 03/09/21 days #6 tabs amoxicillin 875 mg tablet 875 mg PO Q12H #20 tabs 01/07/22 methylprednisolone 4 mg tablets in See Rx Instructions .Route 01/07/22 a dose pack (Medrol (Kuldeep)) .COMPLEX 6 days #21 tabs Allergies Allergy/AdvReac Type Severity Reaction Status Date / Time No Known Allergies Allergy Verified 03/09/21 12:04 Worker's Comp Is this a
[2022-01-07 19:55] VITALS: BP 142/86; PULSE 91; RESP 21; TEMP 36.8; O2SAT 100
== END 2022-01-07 19:59 | disposition home or self-care (01) ==
PROVIDERS: Emergency Provider Nurse Practitioner; PCP Family Medicine
DX: H66.90 Otitis media, unspecified, unspecified ear (principal)
CPT/HCPCS: 99212; G0463

== ENCOUNTER 2022-03-23 13:50 | Emergency (ER) | payer MEDICAID, SELFPAY ==
[2022-03-23 14:30] VITALS: BP 145/77; PULSE 75; RESP 18; TEMP 37; O2SAT 98; BMI 33.5
[2022-03-23 14:44] LABS: UTC Strep Screen (Rapid) Negative (Negative)
[2022-03-23 15:08] VITALS: BP 145/77; PULSE 75; RESP 18; TEMP 37; O2SAT 98
--- NOTE | 2022-03-23 15:10 | EXP.UTC ---
Discharge Plan Disposition Patient Disposition: Home, Self-Care Condition: Good Prescriptions Prescriptions: New azithromycin [Zithromax Z-Kuldeep] 250 mg tablet See Rx Instructions .ROUTE .COMPLEX 5 Days Qty: 6 0RF Rx Instructions: For 250 mg dose pack: take 500 mg today (day 1), then 250 mg for 4 days (days 2-5) No Action albuterol sulfate 90 mcg/actuation HFA aerosol inhaler 2 puff INHALATION Q6H PRN (Reason: wheezing) 30 Days Qty: 6.7 0RF Rx Instructions: administer with spacer azithromycin 250 mg tablet 250 mg PO QDAY 5 Days Qty: 6 0RF Rx Instructions: ii tabs day one and i tab days 2-5 montelukast 10 MG tablet 10 mg PO PM buprenorphine-naloxone 1 EACH film 1 each SL DAILY levothyroxine 175 MCG tablet 175 mcg PO DAILY Rx Instructions: TAKE 1 TABLET BY MOUTH ONCE DAILY bupropion HCl 150 MG tablet sustained-release 12 hr 150 mg PO BID hydrochlorothiazide 50 MG tablet 50 mg PO DAILY Rx Instructions: TAKE ONE TABLET BY MOUTH EVERY DAY amoxicillin 875 mg tablet 875 mg PO Q12H Qty: 20 0RF methylprednisolone [Medrol (Kuldeep)] 4 mg tablets,dose pack See Rx Instructions .Route .COMPLEX 6 Days Qty: 21 0RF Rx Instructions: taper pack; Referrals Follow up/Referrals: Ousmane Hinojosa MD [Primary Care Provider] - See instructions Activity Restrictions/Add. Instructions Additional Instructions/Restrictions: *Monitor Temp, Over the counter Motrin or Tylenol as directed/as needed Tylenol every 4 hours and Motrin every 6 hours (as long as your family doctor has told you that you can take it) for fever or pain. and straight to ER if unable to lower temp less than 101.0 after medication given *Warm salt water gargles may help to soothe the throat *Throat Lozenges? *Warm fluids like tea with honey may help to soothe the throat? *Sleep elevated *Humidifier/Vaporizer Your throat swab was sent for culture. Those results are typically sent to your primary care. Be sure to follow up in 2-3 days with your family doctor/primary care physician if no improvement so they can review those result and treat if necessary. If you don?t have a primary care doctor, I recommend you get one but in the mean time, you will have to return to a walk in clinic Follow up IMMEDIATELY for new or worsening symptoms or no Noticeable improvement over the next 48-72 hours. 911 for difficulty breathing or swallowing Clinical Impressions Clinical Impression: URI (upper respiratory infection) Instructions Patient Instructions: Sore Throat, DI for Sinusitis, Sinusitis Discharge ED Provider: Marge Duran [facility] [place] HPI General Stated complaint: sore throat, cough Mode of Arrival: Ambulatory Source of Information: Patient Limitations: No Limitations Time Seen by Provider: 03/23/22 15:10 Description of Symptoms (Recalled from Triage Doc. by RN): PATIENT C/O SORE THROAT AND YELLOW MUCOUS SINCE THIS MORNING HEENT Symptoms (Recalled from RN notes): Yes Resp Symptoms (Recalled from RN notes): No Skin Symptoms (Recalled from RN notes): No MS Symptoms (Recalled from RN notes): No Functional Status (Recalled from RN notes): WNL History of Present Illness Provider Complaint: Patient states that her child recently had strep throat States that she woke up this morning having sore throat and has had some yellow mucous from her nose States that she feels like she may have strep throat Related Data Home Medications Medication Instructions Recorded Confirmed buprenorphine 8 mg-naloxone 2 mg 1 each SL DAILY opiod use 04/16/20 03/09/21 sublingual film bupropion HCl 150 mg tablet,12 hr 150 mg PO BID Depression 04/16/20 03/09/21 sustained-release hydrochlorothiazide 50 mg tablet 50 mg PO DAILY High blood pressure 04/16/20 03/09/21 levothyroxine 175 mcg tablet 175 mcg PO DAILY thyroid 04/16/20 03/09/21 montelukast 10 mg tablet 10 mg PO PM Asthma 1
== END 2022-03-23 15:20 | disposition home or self-care (01) ==
PROVIDERS: Emergency Provider Nurse Practitioner; PCP Emergency Medicine
DX: J06.9 Acute upper respiratory infection, unspecified (principal); J02.9 Acute pharyngitis, unspecified; R09.89 Other specified symptoms and signs involving the circulatory and respiratory systems; E03.9 Hypothyroidism, unspecified; J45.909 Unspecified asthma, uncomplicated; F32.A Depression, unspecified; F41.9 Anxiety disorder, unspecified; F17.210 Nicotine dependence, cigarettes, uncomplicated; Z79.51 Long term (current) use of inhaled steroids; Z79.52 Long term (current) use of systemic steroids; Z79.899 Other long term (current) drug therapy; Z87.440 Personal history of urinary (tract) infections
CPT/HCPCS: 87880; 99213; G0463

== ENCOUNTER 2022-06-03 13:10 | Emergency (ER) | payer MEDICAID, SELFPAY ==
[2022-06-03 14:00] VITALS: BP 100/83; PULSE 71; RESP 20; TEMP 36.6; O2SAT 98; BMI 34.4
--- NOTE | 2022-06-03 14:11 | EXP.UTC ---
Discharge Plan Disposition Patient Disposition: Home, Self-Care Condition: Good Prescriptions Prescriptions: New azithromycin [Zithromax] 250 mg tablet 250 mg PO UD DOSE PK Qty: 6 0RF Rx Instructions: Take two (2) tablets today, then one (1) tablet days #2 thru #5 benzonatate [benzonatate] 100 mg capsule 100 mg PO TIDP PRN (Reason: Cough) Qty: 30 0RF methylprednisolone 4 mg Tablets,Dose Pack 4 mg PO DIRECTED Qty: 21 0RF No Action albuterol sulfate 90 mcg/actuation HFA aerosol inhaler 2 puff INHALATION Q6H PRN (Reason: wheezing) 30 Days Qty: 6.7 0RF Rx Instructions: administer with spacer azithromycin 250 mg tablet 250 mg PO QDAY 5 Days Qty: 6 0RF Rx Instructions: ii tabs day one and i tab days 2-5 montelukast 10 MG tablet 10 mg PO PM buprenorphine-naloxone 1 EACH film 1 each SL DAILY levothyroxine 175 MCG tablet 175 mcg PO DAILY Rx Instructions: TAKE 1 TABLET BY MOUTH ONCE DAILY bupropion HCl 150 MG tablet sustained-release 12 hr 150 mg PO BID hydrochlorothiazide 50 MG tablet 50 mg PO DAILY Rx Instructions: TAKE ONE TABLET BY MOUTH EVERY DAY amoxicillin 875 mg tablet 875 mg PO Q12H Qty: 20 0RF methylprednisolone [Medrol (Kuldeep)] 4 mg tablets,dose pack See Rx Instructions .Route .COMPLEX 6 Days Qty: 21 0RF Rx Instructions: taper pack; azithromycin [Zithromax Z-Kuldeep] 250 mg tablet See Rx Instructions .ROUTE .COMPLEX 5 Days Qty: 6 0RF Rx Instructions: For 250 mg dose pack: take 500 mg today (day 1), then 250 mg for 4 days (days 2-5) Referrals Follow up/Referrals: Qi Villa [Primary Care Provider] - See instructions Activity Restrictions/Add. Instructions Additional Instructions/Restrictions: Drink plenty of fluids. Take tylenol or ibuprofen for pain or fever. Take the medications as directed. Follow up with your regular doctor. GO TO THE ER FOR ANY WORSENING SYMPTOMS Clinical Impressions Clinical Impression: Bronchitis, Acute viral syndrome Instructions Patient Instructions: Acute Bronchitis, DI for Viral Syndrome [place] ED Provider: [place]ir Morin [facility] [place] General Stated complaint: body aches, sore throat, congestion Time Seen by Provider: 06/03/22 14:11 History of Present Illness Provider Complaint: She states that for the past 2 days she has had chest congestion, sore throat, and sinus congestion. Related Data Home Medications Medication Instructions Recorded Confirmed buprenorphine 8 mg-naloxone 2 mg 1 each SL DAILY opiod use 04/16/20 03/09/21 sublingual film bupropion HCl 150 mg tablet,12 hr 150 mg PO BID Depression 04/16/20 03/09/21 sustained-release hydrochlorothiazide 50 mg tablet 50 mg PO DAILY High blood pressure 04/16/20 03/09/21 levothyroxine 175 mcg tablet 175 mcg PO DAILY thyroid 04/16/20 03/09/21 montelukast 10 mg tablet 10 mg PO PM Asthma 04/16/20 03/09/21 Previous Rx's Medication Instructions Recorded albuterol sulfate 90 mcg/actuation 2 puff inhalation Q6H PRN wheezing 08/30/18 aerosol inhaler 30 days #6.7 grams azithromycin 250 mg tablet 250 mg PO QDAY resp infection 5 03/09/21 days #6 tabs amoxicillin 875 mg tablet 875 mg PO Q12H #20 tabs 01/07/22 methylprednisolone 4 mg tablets in See Rx Instructions .Route 01/07/22 a dose pack (Medrol (Kuldeep)) .COMPLEX 6 days #21 tabs azithromycin 250 mg tablet See Rx Instructions PO .COMPLEX 5 03/23/22 (Zithromax Z-Kuldeep) days #6 tabs azithromycin 250 mg tablet 250 mg PO UD DOSE PK #6 tabs 06/03/22 (Zithromax) benzonatate 100 mg capsule 100 mg PO TIDP PRN Cough #30 caps 06/03/22 methylprednisolone 4 mg tablets in 4 mg PO DIRECTED #21 tabs 06/03/22 a dose pack Allergies Allergy/AdvReac Type Severity Reaction Status Date / Time No Known Allergies Allergy Verified 06/03/22 14:29 [facility] Disclaimer: The information contained in this section may have been updated a
[2022-06-03 14:28] LABS: UTC Strep Screen (Rapid) Negative (Negative)
[2022-06-03 14:29] LABS: UTC Influenza A Antigen Negative (Negative); UTC Influenza B Antigen Negative (Negative)
[2022-06-03 14:53] VITALS: BP 100/83; PULSE 71; RESP 20; TEMP 36.6; O2SAT 98
== END 2022-06-03 14:53 | disposition home or self-care (01) ==
PROVIDERS: Emergency Provider Nurse Practitioner Family; PCP Family Medicine
DX: U07.1 COVID-19 (principal); R52 Pain, unspecified; J02.9 Acute pharyngitis, unspecified; R09.89 Other specified symptoms and signs involving the circulatory and respiratory systems
CPT/HCPCS: 87804; 87880; 99212; 99214; C9803; G0463; U0003; U0005

== ENCOUNTER 2023-07-27 14:58 | Emergency (ER) | payer MEDICAID, SELFPAY ==
[2023-07-27 14:59] VITALS: BP 167/90; PULSE 90; RESP 18; TEMP 36.7; O2SAT 99; BMI 34.0
--- NOTE | 2023-07-27 15:05 | ECG_ITS ---
APPROVED REPORT Exam: Resting ECG HR:83 bpm ECG Measurements Heart Rate 83 AXES WI 156 P 51 QRSd 81 QRS 54 QT 383 T 29 QTc 423 Conclusion SINUS RHYTHM WITH SINUS ARRHYTHMIA NORMAL ECG UNCONFIRMED REPORT Electronically signed by : JOHANNY LOZADA, 07/29/2023 02:00:59
--- NOTE | 2023-07-27 15:07 | PC.NURSE ---
DR MONTGOMERY AT BEDSIDE
--- NOTE | 2023-07-27 15:20 | HMH.EDGENADL ---
Discharge Plan Disposition Patient Disposition: Home, Self-Care Prescriptions Prescriptions: New hydroxyzine pamoate [Vistaril] 25 mg capsule 25 mg PO Q6H PRN (Reason: anxiety) Qty: 30 0RF No Action albuterol sulfate 90 mcg/actuation HFA aerosol inhaler 2 puff INHALATION Q6H PRN (Reason: wheezing) 30 Days Qty: 6.7 0RF Rx Instructions: administer with spacer amoxicillin-pot clavulanate 875-125 mg tablet 1 tab PO BID 10 Days Qty: 20 0RF fluticasone propionate [Allergy Relief (fluticasone)] 50 mcg/actuation spray,suspension 1 spray intranasal DAILY Qty: 16 2RF Rx Instructions: administer into each nostril [id number] [Bromfed DM] 2-30-10 mg/5 mL syrup 5 ml PO Q4-6H PRN (Reason: cold symptoms) Qty: 118 0RF montelukast 10 MG tablet 10 mg PO PM buprenorphine-naloxone 1 EACH film 1 each sublingual DAILY levothyroxine 175 MCG tablet 175 mcg PO DAILY Rx Instructions: TAKE 1 TABLET BY MOUTH ONCE DAILY bupropion HCl 150 MG tablet sustained-release 12 hr 150 mg PO BID hydrochlorothiazide 50 MG tablet 50 mg PO DAILY Rx Instructions: TAKE ONE TABLET BY MOUTH EVERY DAY Referrals Follow up/Referrals: Qi Villa [Primary Care Provider] - See instructions Activity Restrictions/Add. Instructions Additional Instructions/Restrictions: Call your family doctor to establish care for this visit to the emergency department and schedule follow-up within 48 hours to ensure improvement. If you have any worsening of your condition or any other concerning signs or symptoms, return to the emergency department or your primary care doctor for further evaluation. Hydroxyzine as needed every 6 hours for anxiety. Start taking your blood pressure twice daily as discussed and share the results with your family doctor to see if you need to be started on a routine blood pressure medication. Clinical Impressions Clinical Impression: Anxiety, Heart palpitations Discharge ED Provider: Yonas Fernandez General Adult HPI General Chief complaint: Upper Respiratory Infection Stated complaint: sinus congestion, pressure, Elevated HB Time Seen by Provider: 07/27/23 15:05 Mode of Arrival: Ambulatory Source of Information: Patient Limitations: No Limitations Description of Symptoms (Recalled from ER Triage Doc. by RN): PT C/O CONGESTION X 2 DAYS. TAKING OTC MEDS WITHOUT RELIEF. REPORTS WAKING WITH RACING HEART RATE THIS AM. DENIES CHEST PAIN History of Present Illness HPI narrative: Is a 42-year-old female with history of anxiety, hypertension, previous smoking presenting with concern for palpitations and congestion. Patient states that she has had nasal congestion for the past 2 days. She has been on antiallergy medication for the past week or so. States that she has had no fevers, chills, cough, chest pain, shortness of breath, but has not been eating or drinking as much as usual in the past couple of days and feels that she is dehydrated. States that her urine was dark yellow. Started drinking a little more water today when she noticed that her heart felt like it was racing. Resting makes palpitations better, but no other associated symptoms. On further conversation, patient states that she is worried about blood pressure, heart rate, anxiety, and became tearful during the interaction. Reassurance given. Please note that above description of symptoms, in this electronic medical record under categorization of recalled from ER triage doctor by RN are reflective of an initial nursing assessment, however, is not reflective of my full history and physical exam that was personally taken and clarified. Consequentially, this preceding description of symptoms, which may include the patient's categorized chief complaint in the EMR, do not reflect my personal clinical impression, and the ultimate description of history of present illness and patient stated complaints should be deferred to this section of the note. Unless stated otherwise or congruent with this section of the note, additional signs, symptoms, or incongruence should be interpreted as inaccurate with my clinical impression. Related Data Home Medications Medication Instructions Recorded Confirmed buprenorphine 8 mg-naloxone 2 mg 1 each sublingual DAILY opiod use 04/16/20 06/02/23 sublingual film bupropion HCl 150 mg tablet,12 hr 150 mg PO BID Depression 04/16/20 06/02/23 sustained-release hydrochlorothiazide 50 mg tablet 50 mg PO DAILY High blood pressure 04/16/20 06/02/23 levothyroxine 175 mcg tablet 175 mcg PO DAILY thyroid 04/16/20 06/02/23 montelukast 10 mg tablet 10 mg PO PM Asthma 04/16/20 06/02/23 Previous Rx's Medication Instructions Recorded albuterol sulfate 90 mcg/actuation 2 puff inhalation Q6H PRN wheezing 08/30/18 aerosol inhaler 30 days #6.7 grams amoxicillin 875 mg-potassium 1 tab PO BID 10 days #20 tabs 06/02/23 clavulanate 125 mg tablet [id number]-vpjrgenjulrcqyg-ZX 5 ml PO Q4-6H PRN cold symptoms 06/02/23 2 mg-30 mg-10 mg/5 mL oral syrup #118 mL (Bromfed DM) fluticasone propionate 50 1 spray intranasal DAILY #16 grams 06/02/23 mcg/actuation nasal spray,suspension (Allergy Relief (fluticasone)) hydroxyzine pamoate 25 mg capsule 25 mg PO Q6H PRN anxiety #30 caps 07/27/23 (Vistaril) Allergies Allergy/AdvReac Type Severity Reaction Status Date / Time No Known Allergies Allergy Verified 06/02/23 10:44 [facility] Disclaimer: The information contained in this section may have been updated after the patient was seen, as this information can be updated by other users. Medical History Anxiety Asthma Cancer Depression History of gastroesophageal reflux (GERD) Hypothyroid Urinary tract infection Surgical History History of tonsillectomy Social History Smoking Status: Former smoker tobacco type: cigarettes packs per day: 1 second hand exposure: No alcohol intake: never substance use type: denies use current occupational status: other Travel in the last 8 weeks: None household members: family housing: house ROS Obtained: Yes All systems reviewed & no additional complaints except as documented Physical Exam General General appearance: alert and in no apparent distress Head Head exam: atraumatic and normocephalic Eye Eye exam: Present normal appearance, PERRL and EOMI ENT ENT exam: Present mucous membranes moist Neck Neck exam: Present normal inspection, full ROM and trachea midline Respiratory Respiratory exam: Present normal lung sounds bilaterally; Absent respiratory distress, wheezes, stridor, accessory muscle use or prolonged expiratory phase Cardiovascular Cardiovascular exam: Present regular rate and normal rhythm Abdominal Exam Abdominal exam: Present soft; Absent distention, tenderness, guarding, rebound or rigidity Extremities Exam Extremities exam: Absent edema Neurological Exam Neurological exam: Present alert, oriented X3, CN II-XII intact and normal gait; Absent motor sensory deficit Skin Skin exam: Present warm and dry; Absent diaphoresis or erythema Medical Decision Making Medical Records Medical records reviewed: Yes I reviewed the patient's medical records. [place] Inquiry Pt receiving controlled substance: No [place] was queried for this patient: No Vital Signs: 07/27/23 14:59 07/27/23 15:36 Temperature 98.0 F 98.0 F Temperature Source Oral Pulse Rate 70 Pulse Rate [Radial] 90 Respiratory Rate 18 16 Blood Pressure 139/78 Blood Pressure [Right Arm] 167/90 H Blood Pressure Mean [Right Arm] 115 Blood Pressure Source [Right Arm] Automatic Cuff Blood Pressure Position [Right Arm] Sitting 02 Sat by Pulse Oximetry 99 Oxygen Delivery Method Room Air Orders (Tests/Meds): ED MEDICATIONS Discontinued Medications Generic Name Dose Route Start Last Admin Trade Name Freq PRN Reason Stop Dose Admin Hydroxyzine Pamoate 25 mg 07/27/23 15:19 07/27/23 15:23 Hydroxyzine Pamoate 25mg Capsule PO 07/27/23 15:20 25 mg ONCE ONE Administration Medical Decision Narrative: Is a 42-year-old female with history of anxiety, hypertension, previous smoking presenting with concern for palpitations and congestion. Patient states that she has had nasal congestion for the past 2 days. She has been on antiallergy medication for the past week or so. States that she has had no fevers, chills, cough, chest pain, shortness of breath, but has not been eating or drinking as much as usual in the past couple of days and feels that she is dehydrated. States that her urine was dark yellow. Started drinking a little more water today when she noticed that her heart felt like it was racing. Resting makes palpitations better, but no other associated symptoms. On further conversation, patient states that she is worried about blood pressure, heart rate, anxiety, and became tearful during the interaction. Reassurance given. Patient be noted that patient has anxiety and hypertension, both of which are currently not at goal and patient not taking her medications, which is likely complicating care. She has as needed metoprolol, has not been taking that. Also not taking listed hypertensive medications in her chart. History was obtained via conversation with patient. On arrival, patient hemodynamically stable, alert, oriented x4, appropriate, GCS 15, moving all extremities spontaneously, pupils equal and reactive to light. Full physical exam performed and significant for very well appearing woman in no acute distress. Mildly hypertensive, nontachycardic, lungs are clear to auscultation, saturating appropriately on room air. Patient intermittently tearful and states that she feels like I am having a breakdown. Reassurance given. Heart and lungs within normal limits. Differential includes anxiety, URI, other viral syndrome, seasonal allergies, among others. EKG demonstrated sinus rhythm with no ST or T wave changes concerning for acute ischemia. LA, QRS, QT intervals within normal limits. No delta waves, epsilon waves, or other abnormalities. [place] within normal limits. Because patient so well-appearing, conversation was had with her regarding need for follow-up with family doctor for antihypertensive treatment, chronic anxiety management, and further discussion of medication management overall. She voices her understanding. Because patient at baseline without signs or symptoms of clinical decompensation, deemed appropriate for discharge. Results were relayed to patient who voiced understanding and were agreeable to outpatient management and follow up. I discussed my clinical impression with patient and answered all questions. At this time, the evidence for any other entities in the differential is insufficient to warrant any further testing or ED observation. This was explained as well. Advisory was given that persistent or worsening symptoms require further evaluation. I confirmed the understanding of this discussion. Patient was given first dose of hydroxyzine here, the rest was sent to her pharmacy of choice. Critical Care Critical Care Time Critical Care Time: No
[2023-07-27] MEDS: hydrOXYzine pamoate 25MG CAPSULE 25 MG PO (15:23)
[2023-07-27 15:36] VITALS: BP 139/78; PULSE 70; RESP 16; TEMP 36.7
== END 2023-07-27 15:37 | disposition home or self-care (01) ==
PROVIDERS: Emergency Provider Emergency Medicine; PCP Family Medicine
DX: R00.2 Palpitations (principal); F41.9 Anxiety disorder, unspecified; I10 Essential (primary) hypertension; E03.9 Hypothyroidism, unspecified; Z87.891 Personal history of nicotine dependence
CPT/HCPCS: 93005; 99283

== ENCOUNTER 2023-08-15 13:12 | Outpatient (CLI) | payer MEDICAID, SELFPAY ==
[2023-08-15 13:03] LABS: Microscopic, Urine URINE MICROSCOPIC (MICROSCOPIC)
[2023-08-15 13:10] LABS: Basophils # 0.1 K/mm3 (0-0.2); Basophils % 1.5 % (0.1-2.0); Eosinophils # 0.2 K/mm3 (0.0-0.4); Eosinophils % 2.8 % (0.1-12.0); Hematocrit 38.7 % (37.0-47.0); Hemoglobin 12.5 g/dL (12.2-16.2); Lymphocytes % 23.5 % (10-50); Mean Corpuscular HGB Conc 32.2 g/dL (31.8-35.4); Mean Corpuscular Hemoglobin 28.2 pg (27.0-31.2); Mean Corpuscular Volume 87.7 fl (81-99); Mean Platelet Volume 8.6 fl (7.4-10.4); Monocytes # 0.6 K/mm3 (0.1-1.0); Monocytes % 6.8 % (1.7-9.3); Neutrophils # 5.6 K/mm3 (1.8-7.8); Neutrophils % 65.4 % (37.0-80.0); Platelet Count 346 K/mm3 (142-424); Red Blood Count 4.42 M/mm3 (4.20-5.40); Red Cell Distribution Width 14.1 % (11.5-17.5); White Blood Count 8.6 K/mm3 (4.8-10.8)
[2023-08-15 13:17] LABS: Appearance,Urine CLEAR (Clear); Bilirubin,Urine Negative (Negative); Blood, Urine Negative (Negative); Color,Urine YELLOW (Yellow); Glucose,Urine (UA) Negative (Negative); Ketones,Urine Negative (Negative); Leukocyte Esterase,Urine Negative (Negative); Nitrate,Urine Negative (Negative); Protein,Urine Negative (Negative); Specific Gravity, Urine 1.025 (1.005-1.030); Urobilinogen,Urine 0.2 EU/dl (0.2)
[2023-08-15 13:37] LABS: Alanine Aminotransferase 22 U/L (12-78); Albumin Level 3.9 g/dl (3.5-5.0); Albumin/Globulin Ratio 1.4 (1.1-1.8); Alkaline Phosphatase 80 U/L (38-126); Anion Gap 11.7 mEq/L (5-15); Aspartate Amino Transferase 25 U/L (14-36); Bilirubin,Total 0.3 mg/dl (0.2-1.3); Blood Urea Nitrogen 19 mg/dl (7-17); Calcium 9.1 mg/dl (8.4-10.2); Carbon Dioxide 25 mmol/L (22.0-30.0); Chloride 105 mmol/L (98-107); Chol/HDL Ratio 2.3 (1-3.5); Cholesterol 198 mg/dl (140-200); Estimated Glomerular Filt Rate 68 ml/min (>60); GFR (African American) 83 ML/MIN (>60); Globulin 2.7 g/dL (1.3-3.2); Glucose 98 mg/dl (74-100); HDL Cholesterol 85 mg/dl (40-60); Potassium 4.7 mmoL/L (3.5-5.1); Sodium 137 mmol/L (136-145); Total Protein,Serum 6.6 g/dl (6.3-8.2); Triglycerides 133 mg/dl (30-150); VLDL Cholesterol 27 mg/dL (0-40)
[2023-08-15 13:48] LABS: Direct LDL Cholesterol 89.54 mg/dL (100-129)
[2023-08-15 13:54] LABS: Free T4 (Free Thyroxine) 1.31 ng/dl (0.78-2.19)
[2023-08-15 13:55] LABS: Bacteria,Urine Trace /lpf; WBC,Urine Occasional #/hpf (0-3)
[2023-08-15 14:11] LABS: Thyroid Stimulating Hormone 1.38 uIU/mL (0.465-4.68)
[2023-08-15 14:23] LABS: Hemoglobin A1C 5.4 % (4.0-6.0)
[2023-08-15 14:30] LABS: Vitamin B12 837 pg/mL (239-931)
[2023-08-15 14:54] LABS: Iron 52 ug/dL (37-170)
[2023-08-15 15:04] LABS: Total Iron Binding Capacity 340 ug/dL (265-497)
[2023-08-15 15:31] LABS: Ferritin 17.4 ng/ml (6.24-137)
== END 2023-08-15 23:59 | disposition home or self-care (01) ==
LOC: LAB.DROPOF 13:12
PROVIDERS: PCP Nurse Practitioner Family; Visit Provider Nurse Practitioner Family
DX: R53.83 Other fatigue (principal); R60.0 Localized edema; E89.0 Postprocedural hypothyroidism; Z13.220 Encounter for screening for lipoid disorders; Z13.1 Encounter for screening for diabetes mellitus; E66.9 Obesity, unspecified; B96.89 Other specified bacterial agents as the cause of diseases classified elsewhere; Z68.36 Body mass index [BMI] 36.0-36.9, adult; Z79.899 Other long term (current) drug therapy
CPT/HCPCS: 80053; 80061; 81001; 82306; 82607; 82728; 83036; 83540; 83550; 84439; 84443; 85025; 87086

== ENCOUNTER 2024-05-05 17:14 | Emergency (ER) | payer MEDICAID, SELFPAY ==
[2024-05-05 18:55] VITALS: BP 130/76; PULSE 75; RESP 19; TEMP 37; O2SAT 100; BMI 37.9
--- NOTE | 2024-05-05 19:07 | ED_ITS ---
Discharge Plan Disposition Patient Disposition: Home, Self-Care Condition: Good Prescriptions Prescriptions: New methylprednisolone [Medrol (Kuldeep)] 4 mg tablets,dose pack See Rx Instructions .Route .COMPLEX 6 Days Qty: 21 0RF Rx Instructions: taper pack; amoxicillin-pot clavulanate 875-125 mg Tablet 1 tab PO Q12H Qty: 20 0RF guaifenesin [Mucinex] 1,200 mg tablet extended release 12hr 1,200 mg PO Q12H PRN (Reason: congestion) Qty: 20 0RF No Action albuterol sulfate 90 mcg/actuation HFA aerosol inhaler 2 puff INHALATION Q6H PRN (Reason: wheezing) 30 Days Qty: 6.7 0RF Rx Instructions: administer with spacer fluticasone propionate [Allergy Relief (fluticasone)] 50 mcg/actuation spray,suspension 1 spray intranasal DAILY Qty: 16 2RF Rx Instructions: administer into each nostril bupropion HCl 150 mg tablet sustained-release 12 hr 150 mg PO BID Qty: 180 3RF hydrochlorothiazide 50 mg tablet 50 mg PO DAILY Qty: 90 3RF Rx Instructions: TAKE ONE TABLET BY MOUTH EVERY DAY levothyroxine 175 mcg tablet 175 mcg PO DAILY Qty: 90 3RF Rx Instructions: TAKE 1 TABLET BY MOUTH ONCE DAILY amoxicillin-pot clavulanate 875-125 mg tablet 1 tab PO BID 10 Days Qty: 20 0RF methylprednisolone [Medrol (Kuldeep)] 4 mg tablets,dose pack 4 mg PO DAILY Qty: 21 0RF Rx Instructions: Take as directed montelukast 10 MG tablet 10 mg PO PM buprenorphine-naloxone 1 EACH film 1 each sublingual DAILY Referrals Follow up/Referrals: Renae Musa APRN [Primary Care Provider] - See instructions Activity Restrictions/Add. Instructions Additional Instructions/Restrictions: *Monitor Temp, Over the counter Motrin or Tylenol as directed/as needed Tylenol every 4 hours and Motrin every 6 hours (as long as your family doctor has told you that you can take it) for fever or pain. and straight to ER if unable to lower temp less than 101.0 after medication given *Warm salt water gargles may help to soothe the throat *Throat Lozenges? *Warm fluids like tea with honey may help to soothe the throat? *Sleep elevated *Humidifier/Vaporizer Take medication as prescribed Follow up IMMEDIATELY for new or worsening symptoms or no Noticeable improvement over the next 48-72 hours. 911 for difficulty breathing or swallowing Clinical Impressions Clinical Impression: Otitis media Qualifiers: Otitis media type: unspecified Laterality: left Qualified Code(s): H66.92 - Otitis media, unspecified, left ear Instructions Patient Instructions: Middle Ear Infection, Acute Bronchitis, DI for Sinusitis Print Language Print Language: Citizen Of [place] Discharge ED Provider: Marge Duran [facility] HPI General Stated complaint: cough, congestion Mode of Arrival: Ambulatory Source of Information: Patient Limitations: No Limitations Time Seen by Provider: 05/05/24 19:08 Description of Symptoms (Recalled from Triage Doc. by RN): PATIENT C/O LEFT EAR PAIN AND COUGH WITH YELLOW SPUTUM X 3 DAYS HEENT Symptoms (Recalled from RN notes): Yes Resp Symptoms (Recalled from RN notes): Yes Skin Symptoms (Recalled from RN notes): No MS Symptoms (Recalled from RN notes): No Functional Status (Recalled from RN notes): WNL History of Present Illness Provider Complaint: Patient states that she has been having pain in her left ear for about a week that has continued to get worse and when she coughs she feels like a bubbling sensation in her ear, States also she has had sinus congestion and drainage and worried it is trying to move into her chest so she came in to get checked Related Data Home Medications ?Medication ?Instructions ?Recorded ?Confirmed buprenorphine 8 mg-naloxone 2 mg 1 each sublingual DAILY opiod use 04/16/20 02/15/24 sublingual film montelukast 10 mg tablet 10 mg PO PM Asthma 04/16/20 02/15/24 Previous Rx's ?Medication ?Instructions ?Recorded albuterol sulfate 90 mcg/actuation 2 puff inhalation Q6H PRN wheezing 08/30/18 aerosol inhaler 30 days #6.7 grams fluticasone propionate 50 1 spray intranasal DAILY #16 grams 06/02/23 mcg/actuation nasal spray,suspension (Allergy Relief (fluticasone)) bupropion HCl 150 mg tablet,12 hr 150 mg PO BID Depression #180 ea 08/15/23 sustained-release hydrochlorothiazide 50 mg tablet 50 mg PO DAILY BLE edema #90 tabs 08/15/23 levothyroxine 175 mcg tablet 175 mcg PO DAILY thyroid #90 tabs 08/15/23 amoxicillin 875 mg-potassium 1 tab PO BID 10 days #20 tabs 02/15/24 clavulanate 125 mg tablet methylprednisolone 4 mg tablets in 4 mg PO DAILY #21 tabs 02/15/24 a dose pack (Medrol (Kuldeep)) amoxicillin 875 mg-potassium 1 tab PO Q12H #20 tabs 05/05/24 clavulanate 125 mg tablet guaifenesin 1,200 mg tablet, 1,200 mg PO Q12H PRN congestion 05/05/24 extended release 12 hr (Mucinex) #20 tabs methylprednisolone 4 mg tablets in See Rx Instructions .Route 05/05/24 a dose pack (Medrol (Kuldeep)) .COMPLEX 6 days #21 tabs Allergies Allergy/AdvReac Type Severity Reaction Status Date / Time No Known Allergies Allergy Verified 02/15/24 13:19 Worker's Comp Is this a Worker's Comp case?: No [facility] Disclaimer: The information contained in this section may have been updated after the patient was seen, as this information can be updated by other users. Medical History Acute viral syndrome URI (upper respiratory infection) Otitis media Chest pain Bronchitis Community acquired pneumonia Urinary tract infection Depression Cancer History of gastroesophageal reflux (GERD) Anxiety Asthma Hypothyroid Surgical History History of tonsillectomy Social History Smoking Status: Former smoker tobacco type: cigarettes packs per day: 1 second hand exposure: No alcohol intake: never substance use type: denies use current occupational status: other Travel in the last 8 weeks: None household members: family housing: house Have you lived/traveled outside US in past 30 days?: No Contact w/someone who lives/traveled outside US past 30 days?: No Exposure to someone with infectious disease in past 14 days?: No Do you have a fever (greater than 100.4 F or 38 C)?: No Have you tested positive for COVID-19: No Exposed to someone with COVID-19 in past 14 days?: No Do you have a sore throat?: No Do you have a cough?: Yes Do you have any weakness?: No Do you have any diarrhea?: No Are you experiencing any unusual bleeding?: No Do you have any muscle aches/pain?: No Do you have any abdominal pain?: No Are you experiencing loss of taste or smell?: No ROS Obtained: Yes All systems reviewed & no additional complaints except as documented and Yes Systems reviewed as appropriate & no additional complaints except as documented Constitutional Constitutional: Reports system reviewed and no additional complaints, except as documented, Reports as per HPI and Reports headache(s) ENT Ears, Nose, Mouth, and Throat: Reports system reviewed and no additional co mplaints, except as documented, Reports as per HPI, Reports otalgia, Reports headache(s), Reports nasal congestion and Reports sinus pressure Cardiovascular Cardiovascular: Reports system reviewed and no additional complaints, except as documented and Reports as per HPI Respiratory Respiratory: Reports system reviewed and no additional complaints, except as documented, Reports as per HPI, Denies shortness of breath, Reports chest congestion, Reports cough and Denies wheezing Gastrointestinal Gastrointestingal: Reports system reviewed and no additional complaints, except as documented and as per HPI Genitourinary Female Genitourinary: Reports system reviewed and no additional complaints, except as documented and Reports as per HPI Neurologic Neurologic: Reports headache(s) Allergic/Immunologic Allergic/Immunologic: Denies wheezing Physical Exam General General appearance: alert and in no apparent distress ENT ENT exam: Present mucous membranes moist Expanded ENT Exam TM/Canal exam: Left TM: erythema and Bilateral TM: bulging Nose exam: Present sinus tenderness Throat exam: Present other (PND noted) Respiratory Respiratory exam: Present normal lung sounds bilaterally; Absent respiratory distress or wheezes Cardiovascular Cardiovascular exam: Present regular rate, normal rhythm and normal heart sounds Abdominal Exam Abdominal exam: Present soft and normal bowel sounds; Absent distention or tenderness Neurological Exam Neurological exam: Present alert, oriented X3 and normal gait Medical Decision Making Medical Records Screening: Per USPSTF and CDC recommendations, given the prevalence of disease in our region, it is our hospital?s policy to screen for HIV and viral Hepatitis for all patients aged 18 and over and those with ongoing risk factors. [place] Inquiry Pt receiving controlled substance: No [place] was queried for this patient: No Vital Signs: 05/05/24 18:55 Temperature 98.6 F Temperature Source Oral Pulse Rate [Left Brachial] 75 Respiratory Rate 19 Blood Pressure [Left Arm] 130/76 Blood Pressure Mean [Left Arm] 94 Blood Pressure Source [Left Arm] Automatic Cuff Blood Pressure Position [Left Arm] Sitting 02 Sat by Pulse Oximetry 100 Oxygen Delivery Method Room Air
[2024-05-05 19:30] VITALS: BP 130/76; PULSE 75; RESP 19; TEMP 37; O2SAT 100
== END 2024-05-05 19:32 | disposition home or self-care (01) ==
PROVIDERS: Emergency Provider Nurse Practitioner; PCP Nurse Practitioner Family
DX: H66.92 Otitis media, unspecified, left ear (principal)
CPT/HCPCS: 99213; G0381

== ENCOUNTER 2024-09-06 12:16 | Outpatient (CLI) | payer MEDICAID, SELFPAY ==
[2024-09-06 13:42] LABS: Basophils # 0.1 K/mm3 (0-0.2); Basophils % 1.3 % (0.1-2.0); Eosinophils # 0.2 Kmm3 (0.0-0.4); Eosinophils % 2.9 % (0.1-12.0); Hematocrit 39.5 % (37.0-47.0); Hemoglobin 13.3 g/dL (12.2-16.2); Immature Granulocytes # 0.04 10^3uL; Immature Granulocytes % 0.5 %; Lymphocytes # 1.8 K/mm3 (0.7-4.5); Lymphocytes % 22.1 % (10-50); Mean Corpuscular HGB Conc 33.7 g/dL (31.8-35.4); Mean Corpuscular Hemoglobin 27.3 pg (27.0-31.2); Mean Corpuscular Volume 81.1 fl (81-99); Mean Platelet Volume 9.2 fl (7.4-10.4); Monocytes # 0.7 K/mm3 (0.1-1.0); Monocytes % 8.9 % (1.7-9.3); Neutrophils # 5.3 K/mm3 (1.8-7.8); Neutrophils % 64.3 % (37.0-80.0); Nucleated Red Blood Cells # 0 10^3/uL; Nucleated Red Blood Cells % 0 %; Platelet Count 348 K/mm3 (142-424); Red Blood Count 4.87 M/mm3 (4.20-5.40); Red Cell Distribution Width 13.1 % (11.5-17.5); Red Cell Distribution Width-SD 38.4 fL; White Blood Count 8.2 K/mm3 (4.8-10.8)
[2024-09-06 14:16] LABS: Alanine Aminotransferase 35 U/L (12-78); Albumin Level 4.7 g/dl (3.5-5.0); Albumin/Globulin Ratio 1.7 (1.1-1.8); Alkaline Phosphatase 71 U/L (38-126); Anion Gap 9.8 mEq/L (5-15); Aspartate Amino Transferase 37 U/L (14-36); Bilirubin,Total 0.5 mg/dl (0.2-1.3); Blood Urea Nitrogen 18 mg/dl (7-17); Calcium 9.4 mg/dl (8.4-10.2); Carbon Dioxide 29 mmol/L (22.0-30.0); Chloride 102 mmol/L (98-107); Chol/HDL Ratio 2.7 (1-3.5); Cholesterol 188 mg/dl (140-200); Estimated Glomerular Filt Rate 60 ml/min (>60); GFR (African American) 73 ML/MIN (>60); Globulin 2.7 g/dL (1.3-3.2); Glucose 121 mg/dl (74-100); HDL Cholesterol 69 mg/dl (40-60); Potassium 3.8 mmoL/L (3.5-5.1); Sodium 137 mmol/L (136-145); Total Protein,Serum 7.4 g/dl (6.3-8.2); Triglycerides 110 mg/dl (30-150); VLDL Cholesterol 22 mg/dL (0-40)
[2024-09-06 14:33] LABS: Free T4 (Free Thyroxine) 1.96 ng/dl (0.78-2.19)
[2024-09-06 14:38] LABS: 25-OH Vitamin D, Total 45.2 ng/mL (30-100)
[2024-09-06 14:47] LABS: Thyroid Stimulating Hormone 1.12 uIU/mL (0.465-4.68)
[2024-09-06 15:08] LABS: Vitamin B12 > 1000 pg/mL (239-931)
[2024-09-06 19:01] LABS: Iron 149 ug/dL (37-170)
[2024-09-06 19:12] LABS: Total Iron Binding Capacity 388 ug/dL (265-497)
[2024-09-06 19:39] LABS: Ferritin 18.4 ng/ml (6.24-137)
[2024-09-06 19:46] LABS: HIV Combo NEGATIVE (Negative)
[2024-09-06 19:55] LABS: Hepatitis C Ab Qual. W/ RFX REACTIVE (Negative)
[2024-09-06 22:01] LABS: Hemoglobin A1C 5.4 % (4.0-6.0)
--- OUTSIDE RECORDS SUMMARY | 2024-09-07 12:31 | XMS_ITS | Data Portability ---
Author Organization [facility] [place] [employer] [employer] Address [address] [place] [id number] Assessment Encounter Date Assessment Date Assessment LastModified by Organization Details LastModified Time 04/16/2023 04/16/2023 Presumed viral illness. Rest, plenty of fluids, OTC symptomatic treatment. Return for failure several days or sooner if worsening. Steroids for symptoms. [email or web address] Not available 04/16/2023 15:23:10 Plan of Treatment Reminders Order Date Submit Date Provider Last Modified By Organization Details Last Modified Time Details Appointments None recorded. Lab rapid strep group A, throat 2023 024 [email or web address] [facility], [address] [facility], [address] [place] [address], [id number], 4 16:29:54 rapid SARS CoV 2 Ag, QL IA, respiratory specimen 2023 024 HILLARY [facility], [address] [facility], [address], [place], [address], 4 16:34:35 influenza virus A + B + SARS-CoV-2 (COVID19) Ag panel, rapid IA, upper respiratory specimen 2022 023 [email or web address] [facility], [address] [facility], [address], [place], [address], 3 15:21:15 rapid strep group A, throat 2022 023 [email or web address] [facility], [address] [facility], [address] [place] [address], [place], [address], 3 15:15:46 Referral None recorded. Procedures None recorded. Surgeries None recorded. Imaging None recorded. Medication Orders prednisone 10 mg tablets in a dose pack 2022 023 [facility] [place], [address], 3 15:22:55 Medrol (Kuldeep) 4 mg tablets in a dose pack 2022 023 [facility], [facility], [address], [place], [address], 3 15:17:45 benzonatate 200 mg capsule 2022 023 [facility], [facility], [address], [place], [address], 3 15:17:44 Augmentin 875 mg-125 mg tablet 2022 023 [facility], [address] [place] [address], [facility], [place], [address], 3 15:17:42 Patient TargetsNo targets recorded. Patient Instructions Encounter Date Encounter Id Patient Instructions Last Modified By Organization Details Last Modified Time 06/21/2022 [id number] upper respirator y infection (cold): care instructions Not available 06/21/2022 15:09:44 viral respirator y infection: care instructions Not available 06/21/2022 15:09:44 Reason for Referral None Reported. Results Created Date Observation Date Name Description Value Unit Range Abnormal Flag Note LastModifiedBy Organization Detail LastModifiedTime 04/16/20 23 04/16/2023 influ monika virus A + B + SARS- CoV-2 (COVI D19) Ag panel , rapid IA, upper respi rator y speci men FLU A negati ve Not Available [facility] [address] [facility] [address], [place], [address], 04/16/2023 15:02:09 04/16/20 23 04/16/2023 influ monika virus A + B + SARS- CoV-2 (COVI D19) Ag panel , rapid IA, upper respi rator y speci men FLU B negati ve Not Available [facility] [address], [place], [address], 04/16/2023 15:02:09 04/16/20 23 04/16/2023 influ monika virus A + B + SARS- CoV-2 (COVI D19) Ag panel , rapid IA, upper respi rator y speci men SARS COV + SARS OV 2 negati ve Not Available [facility] [address], [place], [address], 04/16/2023 15:02:09 04/16/20 23 04/16/2023 rapid strep group A, throa t Strep negati ve Not Available [facility] [address], [place], [address], 04/16/2023 15:02:20 06/04/19 24 06/04/2023 rapid strep group A, throa t Strep negati ve Not Available [facility] [address], [place], [address], 06/04/2023 16:17:00 Result Notes None recorded. Medical Equipment None Reported. Allergies No known drug allergies Medications Name Sig Start Date Stop Date Status Note LastModified by Organization Details LastModified Time levothyroxine 175 mcg tablet active Not Available Not Availab le Not Available bupropion HCl SR 150 mg tablet,12 hr sustained-rele ase active Not Available Not Available Not Available azithromycin 250 mg tablet active Not Available Not Availabl e Not Available benzonatate 200 mg capsule Take 1 capsule 3 times a day by oral route as needed for 5 days. 2022 active Not Available Not Available Not Avai lable hydrochlorothi azide 50 mg tablet active Not Available Not Available Not Available prednisone 20 mg tablet active Not Available Not Available No t Available levofloxacin 250 mg tablet active Not Available Not Availabl e Not Available prednisone 10 mg tablets in a dose pack TAKE BY MOUTH DIRECTED ON INSIDE OF PACKAGE active Not Available Not Available No t Available amoxicillin 875 mg tablet active Not Available Not Availabl e Not Available benzonatate 100 mg capsule active Not Available Not Availab le Not Available metoprolol succinate ER 25 mg tablet,extende d release 24 hr active Not Available Not Available Not Available methylpredniso lone 4 mg tablets in a dose pack Take 1 dose pk by oral route for 6 days. active Not Available Not Available No t Available albuterol sulfate HFA 90 mcg/actuation aerosol inhaler active Not Available Not Available Not Available brompheniramin e-pseudoephedr ine-DM 2 mg-30 mg-10 mg/5 mL oral syrup active Not Available Not Available N ot Available fluticasone propionate 50 mcg/actuation nasal spray,suspensi on active Not Available Not Available Not Available amoxicillin 875 mg-potassium clavulanate 125 mg tablet Take 1 tablet every 12 hours by oral route for 10 days. active Not Available Not Available No t Available hydroxyzine pamoate 25 mg capsule active Not Available Not Available Not Available buprenorphine 8 mg-naloxone 2 mg sublingual tablet DISSOLVE 1 & 1/2 TABLET UNDER THE TONGUE ONCE DAILY active Not Available Not Available No t Available Eliquis 5 mg tablet TAKE 1 TABLET BY MOUTH TWICE DAILY active Not Available Not Available No t Available guaifenesin ER 600 mg tablet, extended release 12 hr active Not Available Not Availabl e Not Available Vitals Date Recorded Body weight Body temperature Provider N sheba and Address Organization Details Last Updated DateTime 06/21/2022 92620.51 g 98.6 [degF] NILESH ACEVEDO [facility] [place] 06/21/2022 14:58:39 Date Recorded Body weight Body temperature Oxygen saturation Oxygen saturation in Arterial blood by Pulse oximetry Heart rate Heart rate Systolic blood pressure Diastolic blood pressure Provider Name and Address Organization Details Last Updated DateTime 3 81654.8 8 g 98.4 [degF] 96 % 96 % 66 /min 66 /min 140 mm[Hg] 59 mm[Hg] Yumiko Riley [facility] [place] 3 15:09:18 Date Recorded Body weight Body temperature Oxygen saturation Oxygen saturation in Arterial blood by Pulse oximetry Heart rate Heart rate Systolic blood pressure Diastolic blood pressure Provider Name and Address Organization Details Last Updated DateTime 4 29300.7 6 g 98.8 [degF] 99 % 99 % 80 /min 80 /min 145 mm[Hg] 87 mm[Hg] Yumiko Riley [place] [facility] [place] [facility] [place] 4 16:16:10 Social History None recorded. Functional Status None recorded. Mental Status None recorded. Family History Nothing Reported. Medical History No medical history recorded. Gynecological History Statement/Question Response Menses Monthly Y Date of LMP 04/01/2023 Obstetrics History GPAL:G 0 P 0 0 0 0 Past Encounters Encounter ID Performer Location Encounter Start Date Encounter Closed Date Diagnosis/Indication Diagnosis SNOMED-CT Code Diagnosis ICD10 Code Diagnosis Note [id number] Renuka Garduno DNP, [employer], [employer] [facility] [address] [place] [address] 06/21/2022 14:29:32 06/21/2022 15:09:20 Upper respiratory infection 21031368 J06.9 [id number] Cy Mora MD [facility] [address] [place] [address] 04/16/2023 14:50:12 04/16/2023 15:22:36 Cough 98245214 R05.9 Upper resp iratory infection 99647984 J06.9 [id number] Breonna Pina in, [employer] [facility] [address] [place] [address] 06/04/2023 16:11:14 06/04/2023 16:59:59 Sore throat 428534361 J02.9 Viral uppe r respiratory tract infection 229687106 J06.9 Humidifier at night. Warm compresses . Saline nasal rinses as tolerated. Take medication as directed. RTC if no improvemen t.Continue medication as PCP prescribed . You could also take an OTC antihistam ine and decongesta nt. Recommend steroid nasal sprays.Fol low up if no improvemen t. Health Concerns Section Related Observation LastModified by Organization Detai ls LastModified Time None Recorded Concern Status LastModified by Organization Details LastModified Time None Recorded Advance Directives Directive None Recorded Payers Insurance Date Sequence Insurance Name Policy Number Policy Way Covered Member ID Way Member ID Guarantor Name 05/11/2024 1 [employer] (MEDICARE REPLACEMENT/AD VANTAGE - HMO) [id number] Rocio Herron [id number] Rocio Herron 05/11/2024 1 [employer] (MEDICAID REPLACEMENT - HMO) [id number] Rocio Herron [id number] Rocio Shahchie Notes Date Note Type Note Provider Name and Address Organization Details Recorded Time 06/21/2022 text/html Per patient she started feeling ill two weeks ago. patient has had nasal congestion, post nasal drip and nausea. Patient was tested for strep, flu and covid. Patient was treated for bronchitis with cephalexin and z kuldeep with not much relief. Patient has had sinus pressure, nasal congestion, post nasal drip and cough. Patient has not had nausea/vomiting or diarrhea. Patient denies loss of taste or smell. patient had a low grade fever. Renuka Garduno DNP, [employer], [employer] [address], [place], [address], [facility] [place] 06/21/2022 15:09:54 04/16/2023 text/html Upper Respirator y SymptomsReported bypatient.Location:he ad; chest; throat; nasal Quality:sharp throat pain;congested;dry cough;nasal discharge Severity:moderate Onset/Timing:gradual; date of onset: (4 days) Associated Symptoms:fatigue;feve r;sore throat;headache;chill s;malaise; Ear pain Cy Mora MD [id number], [place], [address], [facility] [place] 04/16/2023 15:23:34 06/04/2023 text/html patient presents to [facility] for congestion and sinus pressure. She was seen by her PCP 2 days ago and is currently on an antibiotic. She just wants another opinion. She states her symptoms have improved some. Denies any chest pain or SOB. Denies any productive cough. Breonna Madden APRN [address], [place], [address], [place] - [facility] [place] [facility] [place] 06/05/2023 07:10:41 OBGyn Episode No OBEpisode recorded.
[2024-09-11 17:12] LABS: Microscopic, Urine URINE MICROSCOPIC (MICROSCOPIC)
[2024-09-11 18:07] LABS: Appearance,Urine CLEAR (Clear); Bilirubin,Urine Negative (Negative); Blood, Urine Negative (Negative); Color,Urine YELLOW (Yellow); Glucose,Urine (UA) Negative (Negative); Ketones,Urine Negative (Negative); Leukocyte Esterase,Urine Negative (Negative); Nitrate,Urine Negative (Negative); Protein,Urine Negative (Negative); Urobilinogen,Urine 0.2 EU/dl (0.2)
[2024-09-11 18:44] LABS: WBC,Urine Occasional #/hpf (0-3)
[2024-09-11 18:45] LABS: Bacteria,Urine Trace /lpf
== END 2024-09-06 23:59 | disposition home or self-care (01) ==
LOC: LAB.DROPOF 09-07 12:30
PROVIDERS: PCP Nurse Practitioner Family; Visit Provider Nurse Practitioner Family
DX: E89.0 Postprocedural hypothyroidism (principal); E66.9 Obesity, unspecified; R53.83 Other fatigue; F41.9 Anxiety disorder, unspecified; R41.3 Other amnesia; I10 Essential (primary) hypertension; G47.33 Obstructive sleep apnea (adult) (pediatric); E11.9 Type 2 diabetes mellitus without complications; Z13.1 Encounter for screening for diabetes mellitus; Z11.59 Encounter for screening for other viral diseases; Z11.4 Encounter for screening for human immunodeficiency virus [HIV]; Z13.220 Encounter for screening for lipoid disorders
CPT/HCPCS: 80053; 80061; 81001; 82306; 82607; 82728; 83036; 83540; 83550; 84439; 84443; 85025; 86803; 87086; 87389; 87522

== ENCOUNTER 2024-09-11 14:30 | Outpatient (CLI) | payer MEDICAID, SELFPAY ==
--- OUTSIDE RECORDS SUMMARY | 2024-09-17 20:12 | XMS_ITS | Data Portability ---
Author Organization [facility] [place] YUNIEL ADMIN Address [address] [place] [id number] Assessment Encounter Date Assessment Date Assessment LastModified by Organization Details LastModified Time 04/16/2023 04/16/2023 Presumed viral illness. Rest, plenty of fluids, OTC symptomatic treatment. Return for failure several days or sooner if worsening. Steroids for symptoms. [email or web address] Not available 04/16/2023 15:23:10 Plan of Treatment Reminders Order Date Submit Date Provider Last Modified By Organization Details Last Modified Time Details Appointments None recorded. Lab rapid strep group A, throat 2023 024 [email or web address] [facility], [address] [facility], [address] [place] [address], [address], 4 16:29:54 rapid SARS CoV 2 Ag, QL IA, respiratory specimen 2023 024 HILLARY [facility], [address] [facility], [address], [place], [address], 4 16:34:35 influenza virus A + B + SARS-CoV-2 (COVID19) Ag panel, rapid IA, upper respiratory specimen 2022 023 [email or web address] [facility], [address] [facility], [address], [place], [address], 3 15:21:15 rapid strep group A, throat 2022 023 [facility], [address] [facility], [address] [place] [address], [place], [address], 3 15:15:46 Referral None recorded. Procedures None recorded. Surgeries None recorded. Imaging None recorded. Medication Orders prednisone 10 mg tablets in a dose pack 2022 023 [facility] [place], [address], 3 15:22:55 Medrol (Kuldeep) 4 mg tablets in a dose pack 2022 023 [facility], [facility], [address], [place], [address], 3 15:17:45 benzonatate 200 mg capsule 2022 023 [facility], [facility], [address], [place], [address], 3 15:17:44 Augmentin 875 mg-125 mg tablet 2022 023 [facility], [address] [place] [address], [facility], [place], [address], 3 15:17:42 Patient TargetsNo targets recorded. Patient Instructions Encounter Date Encounter Id Patient Instructions Last Modified By Organization Details Last Modified Time 06/21/2022 [id number] upper respirator y infection (cold): care instructions [...] ve Not Available [facility] [address] [facility] [address], [place], [address], 04/16/2023 15:02:09 04/16/20 23 04/16/2023 influ monika virus A + B + SARS- CoV-2 (COVI D19) Ag panel , rapid IA, upper respi rator y speci men FLU B negati ve Not Available [facility] [address], [place], [address], 04/16/2023 15:02:09 04/16/20 23 04/16/2023 influ monika virus A + B + SARS- CoV-2 (COVI D19) Ag panel , rapid IA, upper respi rator y speci men SARS COV + SARS OV 2 negati ve Not Available [facility] [address], [place], [address], 04/16/2023 15:02:09 04/16/20 23 04/16/2023 rapid strep group A, throa t Strep negati ve Not Available [facility] [address], [place], [address], 04/16/2023 15:02:20 06/04/19 24 06/04/2023 rapid strep group A, throa t Strep negati ve Not Available [facility] [address], [place], [address], 06/04/2023 16:17:00 Result Notes None recorded. Medical [...] Address Organization Details Last Updated DateTime 06/21/2022 68433.51 g 98.6 [degF] NILESH ACEVEDO [facility] [place] 06/21/2022 14:58:39 Date Recorded Body weight Body temperature Oxygen saturation Oxygen saturation in Arterial blood by Pulse oximetry Heart rate Heart rate Systolic blood pressure Diastolic blood pressure Provider Name and Address Organization Details Last Updated DateTime 3 34728.8 8 g 98.4 [degF] 96 % 96 % 66 /min 66 /min 140 mm[Hg] 59 mm[Hg] Yumiko Riley [facility] [place] 3 15:09:18 Date Recorded Body weight Body temperature Oxygen saturation Oxygen saturation in Arterial blood by Pulse oximetry Heart rate Heart rate Systolic blood pressure Diastolic blood pressure Provider Name and Address Organization Details Last Updated DateTime 4 61192.7 6 g 98.8 [degF] 99 % 99 % 80 /min 80 /min 145 mm[Hg] 87 mm[Hg] Yumiko Riley [facility] [place] 4 16:16:10 Date Recorded Body height Body mass index (BMI) Body weight Provider Name and Address Organization Details Last Updated DateTime 09/11/2024 160.02 cm 37.2 kg/m2 44012.4 g Janice Crowder [facility] [place] 09/11/2024 11:19:09 Social History None recorded. Functional Status None recorded. Mental Status None recorded. Family History Nothing Reported. Medical History No medical history recorded. Gynecological History Statement/Question Response Menses Monthly Y Date of LMP 04/01/2023 Obstetrics History GPAL:G 0 P 0 0 0 0 Past Encounters Encounter ID Performer Location Encounter Start Date Encounter Closed Date Diagnosis/Indication Diagnosis SNOMED-CT Code Diagnosis ICD10 Code Diagnosis Note [id number] Renuka Garduno, YURIDIA, [employer], [employer] [facility] [address] [employer] [place] [address] 06/21/2022 14:29:32 06/21/2022 15:09:20 Upper respiratory infection 92599440 J06.9 [id number] Cy Mora MD [facility] [address] [employer] [place] [address] 04/16/2023 14:50:12 04/16/2023 15:22:36 Cough 32119016 R05.9 Upper resp iratory infection 02960393 J06.9 [id number] Breonna Pina in, [employer] [facility] [address] [employer] [place] [address] 06/04/2023 16:11:14 06/04/2023 16:59:59 Sore throat 483302456 J02.9 Viral uppe r respiratory tract infection 034847883 J06.9 Humidifier at night. Warm compresses . [...] Name 05/11/2024 1 [employer] (MEDICARE REPLACEMENT/AD VANTAGE - HMO) [id number] Rocio Shahchie [id number] Rocioveronica Herron 05/11/2024 1 [employer] (MEDICAID REPLACEMENT - HMO) [id number] Rocio Walter Herron [id number] Rocio Gopal Notes Date Note Type Note Provider Name [...] a low grade fever. Renuka Garduno DNP, [employer], [employer] [address], [place], [address], [facility] [place] 06/21/2022 15:09:54 04/16/2023 text/html Upper Respirator y SymptomsReported bypatient.Location:he ad; chest; throat; nasal Quality:sharp throat pain;congested;dry cough;nasal discharge Severity:moderate Onset/Timing:gradual; date of onset: (4 days) Associated Symptoms:fatigue;feve r;sore throat;headache;chill s;malaise; Ear pain Cy Mora MD [address], [place], [address], [facility] [place] 04/16/2023 15:23:34 06/04/2023 text/html patient presents to [facility] for congestion and sinus pressure. She was seen by her PCP 2 days ago and is currently on an antibiotic. She just wants another opinion. She states her symptoms have improved some. Denies any chest pain or SOB. Denies any productive cough. Breonna Madden, [employer] [address] [facility], [place], [address], [facility] [place] [facility] [place] 06/05/2023 07:10:41 OBGyn Episode No OBEpisode recorded.
== END 2024-09-11 23:59 | disposition home or self-care (01) ==
LOC: LAB.DROPOF 09-17 20:11
PROVIDERS: PCP Nurse Practitioner Family; Visit Provider Nurse Practitioner Family
DX: E66.9 Obesity, unspecified (principal); E89.0 Postprocedural hypothyroidism; F41.9 Anxiety disorder, unspecified; R53.83 Other fatigue; Z11.59 Encounter for screening for other viral diseases; Z11.4 Encounter for screening for human immunodeficiency virus [HIV]; Z13.220 Encounter for screening for lipoid disorders; Z13.1 Encounter for screening for diabetes mellitus